=== PATIENT | female | born 1950 | race Caucasian/White ===

== ENCOUNTER 2023-04-03 05:57 | Day surgery (SDC) | payer MEDICARE, OTHER, SELFPAY ==
[2023-03-21 12:33] VITALS: BMI 24.2
[2023-04-03] VITALS (9 sets, daily range): BP systolic 107–132; BP diastolic 65–94; BMI 24.1
[2023-04-03 09:23] LABS: ACT-LR - POC 234 Seconds (116-155)
[2023-04-03 09:45] LABS: ACT-LR - POC 252 Seconds (116-155)
--- NOTE | 2023-04-03 09:59 | ITS.CL.ABL ---
Production Mechanic - Ablation
Ablation
Procedure Report:
ELECTROPHYSIOLOGY ABLATION STUDY
DATE:: April 03, 2023 REFERRING: Dr. Ulises Goodman
INDICATION: Paroxysmal supraventricular tachycardia in the form of atrial fibrillation. History of typical atrial flutter
HISTORY: See H and P. As above
ANTIARRHYTHMIC DRUG: Metoprolol
PRE-PROCEDURE LYNNETTE: No atrial thrombus on intracardiac ultrasound
PRESENTING RHYTHM: Sinus bradycardia
'TIME-OUT': called and confirmed.
SEDATION/ANESTHESIA: provided via the anesthesia department using general anesthesia (LMA).
INTRAVENOUS/ARTERIAL ACCESS:
Right femoral venous - 8Fr
Left femoral venous - 8 Fr, 6 Fr
Venous access sites were occluded with Vascade closure system
Ultrasound guidance for bilateral femoral vein access was utilized by me to obtain access with demonstration of normal anatomy
CHADS-VASC Score:
HAS-Bled Score
PROCEDURE:
1. A decapolar CS catheter was placed within the CS for mapping and pacing. This was also used as the reference catheter for the 3-D map. CTI flutter ablation was performed upfront with persistent bidirectional block and interest was conduction
time of 110 ms. Persistent bidirectional block was brought about at the back of the line towards the IVC and the septal aspect.
2. The intracardiac ultrasound catheter was positioned in the RA to identify the FO for targeting of transseptal puncture, assist in identification of the pulmonary vein ostia, monitoring pre and post ablation pulmonary vein flow velocities,
monitoring for 'bubble' formation during RF application as a sign of thermal injury, and to monitor for pericardial effusion during mapping and ablation procedure. Left atrial size, LV ejection fraction, and pulmonary vein flows were monitored
pre and post ablation procedure. The other valves were inspected and found to be free of significant regurgitation or stenosis.
3. Half of the calculated heparin bolus was administered prior to the first transeptal puncture. Transseptal puncture was performed to diagnose RA and LA pressure so that safetey of LA mapping and ablation could be further assessed, and to access
the left atrium and pulmonary veins for mapping and ablation. This entailed advancing an 8 Fr SL-1 sheath with dilator into the superior vena cava and withdrawing both (monitoring intracardiac ultrasound, fluoroscopy and tip pressure) with the tip
oriented toward the atrial septum. The fossa ovalis was engaged (indicated by sudden displacement of the sheath tip as well as tenting of the fossa seen on intracardiac ultrasound). Left atrial access required a pass with the Brockenbrough needle
extended. Left atrial catheter position was confirmed by pressure monitoring (RA mean pressure 8 mm Hg and LA mean presure 14 mm Hg), LA saturation ( 99 %), as well as fluoroscopy. The sheath was advanced over the dilator and positioned in the
left atrium. This procedure was repeated for the Agilis sheath. The remainder of the calculated heparin bolus was administered and heparin was
infused to maintain ACT at 300 -350 seconds throughout the case.
4. RA pacing was performed via the proximal decapolar poles and LA pacing was performed via the distal decapolr poles.
5. A quadrapolar catheter was first positioned at the His position for His Bundle recording which was tagged via the 3-D Navex sytem, and then passed to the RVA for RV pacing and recording.
6. The 28 mm cryoballoon and 15 mm octapolar G recording catheter were placed in each of the LIPV, LSPV, RSPV and the RIPV.
7. Next, a 3-D map was created using Navex. A 3-D reconstructed CT image was compared to the 3-D Navex map to assist in anatomic interpretation, mapping and ablation. The CT image and the NavX image were fused.
8. 2 distinct form and freezing application given to the left superior pulmonary vein and left inferior pulmonary veins. Risk of pulm vein was given a 3-minute freezing application and 1 distinct 3 minutes and 200 freezing application to the right
inferior pulmonary vein. Entrance and exit block was confirmed in all 4 pulmonary veins and no loss of phrenic nerve capture or cooling of the esophagus was noted. EP study post procedure did not induce any tach arrhythmia with Wenke block at 380
ms AV.
9. Normal sinus node and AV node function noted.
TOTAL FLOURO TIME: 17.2 minutes 52 mg
TOTAL RF DURATION: 8 minutes
REVERSAL OF HEPARIN: 30 mg of protamine, slow IV administration
COMPLICATIONS:
None
Intracardiac US shows no pericardial effusion post ablation.
SUMMARY:
Complex left atrial mapping and ablation.
Isolation of all 4 pulmonary veins as above and CTI flutter ablation with persistent bidirectional block
RECOMMENDATIONS:
1. Admit to monitored bed.
2. Resume anticoagulation
3. Out of bed 2 hours
4. Consider same-day discharge
Copy to: Dr. Goodman
[2023-04-03] MEDS: TYLENOL 650 MG PO (11:00)
[2023-04-03] MEDS: ZOFRAN 4 MG IV (12:44)
--- NOTE | 2023-04-03 14:50 | W.PN.UPDATE ---
Update Note
Progress Note Update
73 yo WF s/p PVI, CTI flutter (same day). She had some mild chest/back discomfort which resolved, no sob, jamey diet, voiding, amb w/o dizziness, mild nausea resolved with zofran, b/l groins c/d/i, soft, EKG SR. She will continue OAC Eliquis dose at
4pm at home. She will continue metoprolol. Activity restrictions reviewed. She will f/u Dr. Goodman in 2 mo. She is for d/c home after 130p.
SUMMARY:�
Complex left atrial mapping and ablation.
Isolation of all 4 pulmonary veins as above and CTI flutter ablation with persistent bidirectional block
RECOMMENDATIONS:
1. Admit to monitored bed.
2. Resume anticoagulation
3.� Out of bed 2 hours
4.� Consider same-day discharge
Copy to: Dr. Goodman
== END 2023-04-03 14:10 | disposition home or self-care (01) ==
LOC: CATH 05:57
PROVIDERS: ATTENDING PHYSICIAN Internal Medicine Cardiovascular Disease; FAMILY PHYSICIAN Physician Assistant Medical
DX: I48.0 Paroxysmal atrial fibrillation (principal); I48.3 Typical atrial flutter; E78.5 Hyperlipidemia, unspecified; I25.10 Atherosclerotic heart disease of native coronary artery without angina pectoris; I45.10 Unspecified right bundle-branch block; I08.3 Combined rheumatic disorders of mitral, aortic and tricuspid valves; R09.82 Postnasal drip; N28.9 Disorder of kidney and ureter, unspecified; Z86.010 Personal history of colon polyps; K57.90 Diverticulosis of intestine, part unspecified, without perforation or abscess without bleeding; M19.90 Unspecified osteoarthritis, unspecified site; Z86.19 Personal history of other infectious and parasitic diseases; Z79.01 Long term (current) use of anticoagulants
CPT/HCPCS: C1894; C1766; C2630; C1892 ×2; C1730; C1733; C1759; 76937; 85347; 93005; 93655; 93656; C1760; Q9967

== ENCOUNTER 2023-04-04 08:11 | Emergency (ER) | payer MEDICARE, OTHER, SELFPAY ==
[2023-04-04 08:15] VITALS: BP 149/83
[2023-04-04 09:25] VITALS: BP 133/96
--- NOTE | 2023-04-04 09:30 | ED.GENMED ---
History of Present Illness
General
Chief Complaint: Skin Problem
Source: patient
Exam Limitations: none
Time Seen by Provider: 04/04/23 08:29
Travel History
Have you had any contact with someone who has COVID-19?: No
Do you have any symptoms of coronavirus? Fever > 100 degrees, chills, cough, shortness of breath, sore throat, loss of taste or smell, muscle aches, or headache?: No
History of Present Illness
History of Present Illness:
73-year-old female who presents for evaluation of her right groin wound. The patient had an ablation yesterday and was told to watch the dressings for saturation. Today when she woke up she noticed the dressings were bloody on the right. She
reports no pain. She states that there is a little bit of discomfort that she expected. She does report she feels a little flushed this morning. No fevers. No abdominal pain. No vomiting.
Past History
Past History
ED Past Medical History: Arrthythmia (Atrial fibrillation, anticoagulated) and Other (colon polyps)
ED Past Surgical History: Orthopedic and Other (A ligament repair of the left knee, wisdom teeth extraction, tubes tied, colonoscopy with polypectomy)
Social History
Tobacco: Non-smoker
Personal:
Living: alone
Employment: Retired
Phy Exam
Physical Exam
Physical Exam:
CONSTITUTIONAL Patient alert and oriented to person, place and time. Well-appearing. Vital signs reviewed.
HEAD atraumatic, normocephalic.
EYES eyelids normal to inspection, Extraocular muscles intact, Conjunctiva normal, Sclera normal.
NECK normal range of motion, Trachea midline, no jugular venous distention.
RESPIRATORY CHEST No respiratory distress noted, Chest expansion equal
ABDOMEN No distention.
BACK normal inspection, no obvious deformities
UPPER EXTREMITY range of motion normal, Motor strength normal, no cyanosis, no edema.
LOWER EXTREMITY range of motion normal, Motor strength normal, no cyanosis, no edema. Right groin with small incision area (less than 1 cm). There is no surrounding ecchymosis or induration. There is no focal tenderness. No redness. No
drainage. There is no active bleeding. Left groin with some surrounding ecchymosis around the small less than 1 cm incision site. No tenderness or bleeding. No redness. No drainage
NEURO Speech normal, No focal motor deficits, Copeland coma scale 15, Memory normal, Cranial Nerves intact to screening exam.
SKIN skin warm, dry, and normal in color.
PSYCHIATRIC patient oriented to person place and time, Normal affect.
Course
Orders/Labs/Results
Orders:
Orders
04/04/23 09:57
Electrocardiogram (*1) Stat
Reason for Study: Other
Other Reason for Exam: chest pain
EKG- Treatment ONCE
Vital Signs
Initial and Last Documented VS:
Initial Vital Signs
Temp Pulse Resp BP Pulse Ox
98.2 F 78 16 149/83 98
04/04/23 08:15 04/04/23 08:15 04/04/23 08:15 04/04/23 08:15 04/04/23 08:15
Last Documented Vital Signs
Temp Pulse Resp BP Pulse Ox
98.2 F 70 16 133/96 98
04/04/23 08:15 04/04/23 09:25 04/04/23 09:25 04/04/23 09:25 04/04/23 09:25
MDM/Problems Addressed
MDM/Problems Addressed:
Postoperative wound evaluation, postoperative bleeding, therapeutic coagulopathy
*Pulse Oximetry
Patient hypoxic: no
*EKG
Interpreted by ED Provider?: Yes
Interpretation: normal
Rate: normal
Rhythm: sinus
Interval: normal interval
QRS Pattern: other (incomplete RBBB)
Ischemia: no ischemia
*Critical Care Note
Total Time (30-74mins, 75-104mins- exclusive of procedures): Not Applicable
Data Reviewed
Source: patient
Prescriptions/Medications Considered But Not Given:
Consider lidocaine with epi but no active bleeding
Patient Management
Discussion with other providers: Sociology Adjunct Instructor (Case discussed with Dr. Oneill)
Escalation/DeEscalation of care consider admission/obs:
Patient observed. No further bleeding at all. No clinical concern for pseudoaneurysm. Case discussed with Dr. Oneill. Outpatient follow-up recommended
ED Attending Note
-
Portions of this chart may have been created with voice recognition software.� Occasional wrong word or��sound alike� substitutions may have occurred due to the inherent limitations of voice recognition software.
Discharge Plan
Departure
Patient Disposition: Home (Routine Discharge)
Date of Disposition: 04/04/23
Time of Disposition: 09:41
Patient with high blood pressure during this ER visit?: Yes
Discharge Problem:
Postoperative wound hemorrhage
Instructions: Wound Care (DC), BLOOD PRESSURE
Prescriptions:
No Action
Eliquis 5 mg Tablet
5 mg PO BID Qty: 30 3RF
metoprolol succinate 25 mg Tablet Extended Release 24 Hr
25 mg PO DAILY Qty: 30 3RF
Referrals:
Jessica Bertrand PA-C [Family Provider] -
Activity Restrictions/Additional Instructions:
Please avoid any irritate underwear for 2 to 3 weeks. Please follow-up with cardiology as planned. Return for swelling of the groin, pain, bleeding, redness, oozing from the wound or any other concerns.
Interventions
Interventions:
*Risk Screen - Suicide Last Done: 04/04/23 08:16
*General Assessment Last Done: 04/04/23 08:45
*Neglect/Abuse Screening Last Done: 04/04/23 09:34
ED- Fall Risk Assessment Last Done: 04/04/23 08:45
*ED COVID-19 Vaccine History Last Done: 04/04/23 08:15
ED-Skin Assessment Last Done: 04/04/23 08:45
[2023-04-04 10:22] VITALS: BP 122/72
== END 2023-04-04 10:24 | disposition home or self-care (01) ==
LOC: EMR 08:11
PROVIDERS: EMERGENCY PHYSICIAN Emergency Medicine; FAMILY PHYSICIAN Physician Assistant Medical
DX: L76.22 Postprocedural hemorrhage of skin and subcutaneous tissue following other procedure (principal); R03.0 Elevated blood-pressure reading, without diagnosis of hypertension
CPT/HCPCS: 99283; 93005

== ENCOUNTER 2023-06-13 14:12 | Emergency (ER) | payer MEDICARE, OTHER, SELFPAY ==
[2023-06-13] VITALS (13 sets, daily range): BP systolic 85–126; BP diastolic 65–93
[2023-06-13] MEDS: LOPRESSOR 5 MG IV (16:18)
[2023-06-13] MEDS: NSS 1000 IV (16:18)
[2023-06-13 16:27] LABS: Hematocrit 41.9 % (37.0-47.0); Mean Corp Hgb Conc. 33.4 g/dL (33.0-37.0); Mean Corpuscular Volume 89.9 fL (81.0-99.0); Mean Platelet Volume 10.1 fL (7.4-10.4); Platelet Count 243 10^3/uL (130-400); Red Blood Cell Count 4.66 10^6/uL (4.20-5.40); Red Cell Dist. Width 13.2 % (11.5-14.5); White Blood Cell Count 8.1 10^3/uL (4.8-10.8)
--- NOTE | 2023-06-13 16:38 | ED.GENMED ---
History of Present Illness
General
Chief Complaint: Heart Rate Problem
Source: patient and records
Exam Limitations: none
Time Seen by Provider: 06/13/23 15:46
Nursing documentation reviewed up to this point in time: agreed with
Travel History
Have you had any contact with someone who has COVID-19?: No
Do you have any symptoms of coronavirus? Fever > 100 degrees, chills, cough, shortness of breath, sore throat, loss of taste or smell, muscle aches, or headache?: No
History of Present Illness
History of Present Illness:
73-year-old female referred from cardiology due to tachycardia she has had fast heart rate since the weekend after doing some activity in the heat she has been compliant with her metoprolol and Eliquis has not missed any doses call cardiology today
referred here for cardioversion no chest pain does feel bit fatigue but no fevers, no nausea or vomiting no abnormal bleeding
Past History
Past History
ED Past Medical History: Arrthythmia (Atrial fibrillation, anticoagulated) and Other (colon polyps)
ED Past Surgical History: Cardiac (pvi), Orthopedic and Other (A ligament repair of the left knee, wisdom teeth extraction, tubes tied, colonoscopy with polypectomy)
Social History
Tobacco: Non-smoker
Alcohol: None
Drug: None
Personal:
Living: alone
Employment: Retired
Review of Systems
Review of Systems
All Other Systems: Not applicable
Constitutional: Reports fatigue (Mild since has been out that heat)
Respiratory: Denies trouble breathing
Cardiac: Denies chest pain, diaphoresis, palpitations or syncope
Musculoskeletal: Reports no symptoms
Skin: Reports no symptoms
Neurological: Reports weakness
Endocrine: Reports no symptoms
Phy Exam
Physical Exam
Physical Exam:
Physical Exam
General: no apparent distress, not acutely ill
Neck: Lips are moist
Heart: Tachycardia
Lungs: no acute respiratory distress. clear bilaterally
Neuro: alert and oriented. no focal neurological deficits
Skin: no rash
Psychiatric: well kept. interactive and cooperative
Extremities: no edema. no calf tenderness.
Course
Orders/Labs/Results
Orders:
Orders
06/13/23 14:15
ECG [Electrocardiogram (*1)] Urgent
Reason for Study: Atrial Flutter
EKG- Treatment ONCE
06/13/23 16:15
Metoprolol [Lopressor] 5 mg IV NOW STA
06/13/23 16:16
0.9% Sodium Chloride 1000 ml [Nss] 1,000 ml IV BOLUS
06/13/23 16:18
Complete Blood Count/No Diff Urgent
Comprehensive Metabolic Panel Urgent
Magnesium Urgent
06/13/23 16:43
ECG [Electrocardiogram (*1)] Urgent
Reason for Study: Tachycardia
EKG- Treatment ONCE
06/13/23 16:52
ASA Classification Routine
Propofol [Diprivan] 100 mg IV NOW STA
06/13/23 17:14
ECG [Electrocardiogram (*1)] Urgent
Reason for Study: Other
Other Reason for Exam: cardioversion
06/13/23 17:15
EKG- Treatment ONCE
Abnormal Lab Results
06/13/23
16:18
BUN 26 H mg/dl
(7-17)
AST 123 H U/L
(14-36)
ALT 85 H U/L
(0-35)
06/13/23 16:18
06/13/23 16:18
Vital Signs
Initial and Last Documented VS:
Initial Vital Signs
Temp Pulse Resp BP Pulse Ox
97.7 F 134 16 125/93 97
06/13/23 14:14 06/13/23 14:14 06/13/23 14:14 06/13/23 14:14 06/13/23 14:14
Last Documented Vital Signs
Temp Pulse Resp BP Pulse Ox
98.6 F 64 18 99/77 99
06/13/23 17:47 06/13/23 17:47 06/13/23 17:47 06/13/23 17:47 06/13/23 17:47
Procedures
Cardioversion
Indication:: Afib
Performed by:: bryn
Synchronized?: Yes
Energy Used: 200 joules
Number of attempts: 1
Successful?: Yes
ASA Risk Score: Class II
Any reaction or bad outcome to prior sedation/anesthesia?: No history of a reaction
Sedation level to be attained: moderate
Chart and allergies reviewed: Yes
Patient reassessed prior to sedation: Yes
Time out completed at (validating right patient & procedure): 15:07
History of difficult intubation: No
Airway free of obstruction: Yes
Patient has a gag reflex: Yes
Patient is able to open mouth: Yes
Patient has no dentures: Yes
Patient has no loose teeth: Yes
Medication administered by Provider during Moderate Sedation: IV Propofol (mg)
Total dose administered: 60
Time drug administered: 15:07
Start Time: 15:07
Stop Time: 15:17
MDM/Problems Addressed
Differential Diagnosis Includes:
A-fib a flutter SVT sinus tach
MDM/Problems Addressed:
A flutter
Chronic conditions affecting care: Arrhythmia
Acute Exacerbation and/or Progression of Chronic Illness: Arrhythmia
*EKG
Interpreted by ED Provider?: Yes
Interpretation: abnormal
Comparison EKG: changes noted
Heart Rate: 134
Rate: tachycardiac
Rhythm: atrial flutter
Ischemia: non-specific ST changes
*Nail Welter Interpretation
Rate: tachycardiac
Interpretation: abnormal
Heart Rate: 136
Rhythm: atrial flutter
*Critical Care Note
Total Time (30-74mins, 75-104mins- exclusive of procedures): 12
Update Note
Update Note:
5:28 PM patient feeling much better she is in sinus rhythm in the 60s did have some transient hypotension responded to fluids after she was sedated she is amnestic to her procedures she is very thankful
ED Attending Note
-
Portions of this chart may have been created with voice recognition software.� Occasional wrong word or��sound alike� substitutions may have occurred due to the inherent limitations of voice recognition software.
Discharge Plan
Departure
Patient Disposition: Home (Routine Discharge)
Date of Disposition: 06/13/23
Time of Disposition: 18:32
Patient with high blood pressure during this ER visit?: No
Condition: Good
Discharge Problem:
Paroxysmal atrial flutter
Instructions: Atrial Fibrillation (DC), MODERATE SEDATION ADULT
Prescriptions:
No Action
Eliquis 5 mg Tablet
5 mg PO BID Qty: 30 3RF
metoprolol succinate 25 mg tablet extended release 24 hr
25 mg PO HS
Referrals:
Jessica Bertrand PA-C [Family Provider] -
Ulises Goodman DO [Active] - Next open appointment
Interventions
Interventions:
*Risk Screen - Suicide Last Done: 06/13/23 14:14
*General Assessment Last Done: 06/13/23 14:14
*Neglect/Abuse Screening Last Done: 06/13/23 14:14
ED- Fall Risk Assessment Last Done: 06/13/23 15:43
*ED COVID-19 Vaccine History Last Done: 06/13/23 14:14
ED- Cardiac Assessment Last Done: 06/13/23 15:43
ED- Pulmonary Assessment Last Done: 06/13/23 15:43
Discharge Date and Time
Print Language: SAMI
[2023-06-13 16:49] LABS: ALT (SGPT) 85 U/L (0-35); AST (SGOT) 123 U/L (14-36); Albumin 4.2 g/dl (3.5-5.0); Alkaline Phosphatase 105 U/L (38-126); Blood Urea Nitrogen 26 mg/dl (7-17); Calcium 9.7 mg/dl (8.4-10.2); Carbon Dioxide 25 mmol/L (22-30); Chloride 105 mmol/L (98-107); Glucose 93 mg/dl (70-99); Magnesium 2.1 mg/dl (1.6-2.3); Potassium 4.7 mmol/L (3.5-5.1); Sodium 137 mmol/L (135-145); Total Bilirubin 0.6 mg/dl (0.2-1.3); eGFR 59.49
== END 2023-06-13 19:20 | disposition home or self-care (01) ==
LOC: EMR 14:12
PROVIDERS: EMERGENCY PHYSICIAN Emergency Medicine; FAMILY PHYSICIAN Physician Assistant Medical
DX: I48.92 Unspecified atrial flutter (principal); Z79.01 Long term (current) use of anticoagulants
CPT/HCPCS: 92960; 99285; 96374; 96361; 99152; 80053; 83735; 85027; 93005

== ENCOUNTER 2023-07-25 15:22 | Emergency (ER) | payer MEDICARE, OTHER, SELFPAY ==
[2023-07-25] VITALS (37 sets, daily range): BP systolic 96–122; BP diastolic 69–94
--- NOTE | 2023-07-25 16:05 | ED.GENMED ---
History of Present Illness
<JESS Tong - Last Filed: 07/25/23 22:15>
General
Chief Complaint: Heart Rate Problem
Source: patient
Exam Limitations: none
Time Seen by Provider: 07/25/23 16:02
Travel History
Have you had any contact with someone who has COVID-19?: No
Do you have any symptoms of coronavirus? Fever > 100 degrees, chills, cough, shortness of breath, sore throat, loss of taste or smell, muscle aches, or headache?: No
History of Present Illness
History of Present Illness:
Patient is a 73-year-old female with history of a flutter on Eliquis and metoprolol has not missed a dose presents to the ER for elevated heart rate. She reports she did an exercise class this morning and [employer] this morning and was
fine but 11:15 AM she felt her heart racing and her heart monitor home told her her heart rate was in the 120s. She did feel a little lightheaded and short breath prior to coming to the ER however is asymptomatic presently. She is on metoprolol
and Eliquis and has not missed a dose of her Eliquis. She does not currently feel palpitations. She is followed by Dr. Goodman. She also reports she has had cardiac ablation March 2023. In addition she has had 2 cardioversions once June 12 here
and once July 03 in [place] .because she has had 2 cardioversions within 3 weeks apart cardiology is planning to do an ablation.
Past History
<JESS Tong - Last Filed: 07/25/23 22:15>
Past History
ED Past Medical History: Arrthythmia (Atrial fibrillation, anticoagulated) and Other (colon polyps)
ED Past Surgical History: Cardiac (pvi), Orthopedic and Other (A ligament repair of the left knee, wisdom teeth extraction, tubes tied, colonoscopy with polypectomy)
Social History
Tobacco: Non-smoker
Alcohol: None
Drug: None
Personal:
Living: alone
Employment: Retired
Review of Systems
<JESS Tong - Last Filed: 07/25/23 22:15>
Review of Systems
Allergies reviewed?: Yes
Constitutional: Reports no symptoms
Respiratory: Reports no symptoms
Cardiac: Reports palpitations; Denies chest pain, diaphoresis or syncope
ABD/GI: Reports no symptoms
: Reports no symptoms
Musculoskeletal: Reports no symptoms
Skin: Reports no symptoms
Neurological: Reports no symptoms
Psychiatric: Reports no symptoms
Phy Exam
<JESS Tong - Last Filed: 07/25/23 22:15>
General Physical Exam
General Presentation: no apparent distress
General age: appears stated age
General Skin: warm and dry
General Habitus: normal
General Mental: alert
General Hydration: appears well hydrated
Cardiovascular Exam
Cardiovascular Exam: irregularly irregular
Pulmonary Exam
Pulmonary Exam: lungs clear and no respiratory distress
Neurological Exam
Neurological Exam: alert and oriented x3
Musculoskeletal Exam
Musculoskeletal Exam: full ROM
Skin Exam
Skin Exam: normal color and warm/dry
Psychiatric Exam
Psychiatric Exam: normal mood/affect
Course
<JESS Tong - Last Filed: 07/25/23 22:15>
Orders/Labs/Results
Orders:
Orders
07/25/23 15:23
Electrocardiogram (*1) Urgent
Reason for Study: Palpitations
EKG- Treatment ONCE
07/25/23 16:15
Complete Blood Count/With Diff Urgent
Comprehensive Metabolic Panel Urgent
TSH Reflex To Free T4 Urgent
07/25/23 16:20
0.9% Sodium Chloride 1000 ml [Nss] 1,000 ml IV BOLUS
07/25/23 17:14
Diltiazem 125 mg/125 ml Nss [Cardizem] 125 mg in 125 ml IV NOW
Initial dose in mg/hr, then titrate:: 5
Titrate to keep:: Heart rate 80-100 bpm
Titrate by mg/hr:: 5 mg/hr
Frequency of titrations (minutes):: 15
Maximum dose in mg/hr:: 15
Diltiazem HCl [Cardizem] 10 mg IV NOW STA
07/25/23 18:38
Propofol [Diprivan] 20 ml .ROUTE .STK-MED
07/25/23 19:16
EKG [Electrocardiogram (*1)] Urgent
Reason for Study: Chest Pain
EKG- Treatment ONCE
07/25/23 19:30
EKG [Electrocardiogram (*1)] Urgent
Reason for Study: Atrial Fibrillation
EKG- Treatment ONCE
Abnormal Lab Results
07/25/23
16:15
BUN 23 H mg/dl
(7-17)
Glucose 118 H mg/dl
(70-99)
07/25/23 16:15
07/25/23 16:15
Vital Signs
Initial and Last Documented VS:
Initial Vital Signs
Temp Pulse Resp BP Pulse Ox
98.1 F 130 20 119/80 98
07/25/23 15:28 07/25/23 15:28 07/25/23 15:28 07/25/23 15:28 07/25/23 15:28
Last Documented Vital Signs
Temp Pulse Resp BP Pulse Ox
97.9 F 62 23 117/77 97
07/25/23 21:22 07/25/23 21:20 07/25/23 21:20 07/25/23 21:20 07/25/23 21:20
<Liam Manuel DO - Last Filed: 07/25/23 18:49>
Orders/Labs/Results
Orders:
Orders
07/25/23 15:23
Electrocardiogram (*1) Urgent
Reason for Study: Palpitations
EKG- Treatment ONCE
07/25/23 16:15
Complete Blood Count/With Diff Urgent
Comprehensive Metabolic Panel Urgent
TSH Reflex To Free T4 Urgent
07/25/23 16:20
0.9% Sodium Chloride 1000 ml [Nss] 1,000 ml IV BOLUS
07/25/23 17:14
Diltiazem 125 mg/125 ml Nss [Cardizem] 125 mg in 125 ml IV NOW
Initial dose in mg/hr, then titrate:: 5
Titrate to keep:: Heart rate 80-100 bpm
Titrate by mg/hr:: 5 mg/hr
Frequency of titrations (minutes):: 15
Maximum dose in mg/hr:: 15
Diltiazem HCl [Cardizem] 10 mg IV NOW STA
07/25/23 18:38
Propofol [Diprivan] 20 ml .ROUTE .STK-MED
07/25/23 19:16
EKG [Electrocardiogram (*1)] Urgent
Reason for Study: Chest Pain
EKG- Treatment ONCE
07/25/23 19:30
EKG [Electrocardiogram (*1)] Urgent
Reason for Study: Atrial Fibrillation
EKG- Treatment ONCE
Abnormal Lab Results
07/25/23
16:15
BUN 23 H mg/dl
(7-17)
Glucose 118 H mg/dl
(70-99)
07/25/23 16:15
07/25/23 16:15
Vital Signs
Initial and Last Documented VS:
Initial Vital Signs
Temp Pulse Resp BP Pulse Ox
98.1 F 130 20 119/80 98
07/25/23 15:28 07/25/23 15:28 07/25/23 15:28 07/25/23 15:28 07/25/23 15:28
Last Documented Vital Signs
Temp Pulse Resp BP Pulse Ox
97.9 F 62 23 117/77 97
07/25/23 21:22 07/25/23 21:20 07/25/23 21:20 07/25/23 21:20 07/25/23 21:20
Procedures
<JESS Tong - Last Filed: 07/25/23 22:15>
Moderate Sedation
ASA Risk Score: Class II
Chart and allergies reviewed: Yes
Consent for anesthesia obtained: Yes
Time out completed (validating right patient & procedure): Yes
Moderate Sedation Start Time(when first medication is given): 19:28
History of difficult intubation: No
Airway free of obstruction: Yes
Patient has a gag reflex: Yes
Patient is able to open mouth: Yes
Patient has no dentures: Yes
Patient has no loose teeth: Yes
Medication administered by Provider during Moderate Sedation: IV Propofol (mg)
Total dose administered: 50
Time drug administered: 19:28
Moderate Sedation Procedure End Time: 19:38
Cardioversion
Indication:: Other (aflutter )
Performed by:: DR Manuel, and myself
Synchronized?: Yes
Energy Used: 150 joules
Number of attempts: 1
Successful?: Yes
Complications: 0
<JESS Tong - Last Filed: 07/25/23 22:15>
MDM/Problems Addressed
Differential Diagnosis Includes:
Not limited to a flutter
MDM/Problems Addressed:
Patient is a 73-year-old female who has a history of a flutter on Eliquis metoprolol has not missed a dose but had palpitations today presented in a flutter here in the ER. Patient was given Cardizem bolus and drip but remained tachycardic. She
presented awake alert no acute distress.
Patient was eval by ED physician decision was made to do moderate sedation and cardioversion. Patient tolerated procedure well converted to normal sinus rhythm heart rate 61. Patient was monitored here remained in normal sinus rhythm with stable
vital signs stable for discharge home with moderate sedation instructions given
<JESS Tong - Last Filed: 07/25/23 22:15>
*Pulse Oximetry
Patient hypoxic: no
*EKG
Interpreted by ED Provider?: Yes
Heart Rate: 124
Rhythm: atrial flutter
Ischemia: no ischemia
<Liam Manuel DO - Last Filed: 07/25/23 18:49>
*Critical Care Note
Total Time (30-74mins, 75-104mins- exclusive of procedures): 45 minutes
ED Attending Note
<JESS Tong - Last Filed: 07/25/23 22:15>
-
Portions of this chart may have been created with voice recognition software.� Occasional wrong word or��sound alike� substitutions may have occurred due to the inherent limitations of voice recognition software.
<Liam Manuel DO - Last Filed: 07/25/23 18:49>
ED Attending Note
Patient seen and examined by attending physician: Yes
I performed the substantive portion of visit, reviewed & personally made and approve the management plan that is documented in note by myself or MILENA.: Yes
ED Attending Note:
73-year-old female with a history of ablation and atrial fibrillation who presents with rapid heartbeat. The patient on my assessment feels well. She has had cardioversion several times in the past. Patient denies chest pain or shortness of
breath. Exam: Awake and alert, heart rate 120 on exam and appears to be a flutter. Assessment and plan: EKG shows a flutter. Proceed with cardioversion and outpatient follow-up with cardiology if successful
Discharge Plan
Departure
Patient Disposition: Home (Routine Discharge)
Date of Disposition: 07/25/23
Time of Disposition: 21:48
Patient with high blood pressure during this ER visit?: No
Condition: Fair
Covid-19: Not Applicable
Discharge Problem:
Paroxysmal atrial flutter, moderate sedation
Instructions: Atrial Flutter (DC), Moderate Sedation in Adults (DC)
Prescriptions:
No Action
Eliquis 5 mg Tablet
5 mg PO BID Qty: 30 3RF
metoprolol succinate 25 mg tablet extended release 24 hr
25 mg PO HS
Referrals:
Wilberto Boone MD [Family Provider] -
Activity Restrictions/Additional Instructions:
Follow-up with your clinic charge nurse as discussed.
Continue to take your medications as previously recommended and return if any worsening of symptoms including palpitations shortness of breath or any further concerns.
Interventions
Interventions:
*Risk Screen - Suicide Last Done: 07/25/23 15:28
*General Assessment Last Done: 07/25/23 15:28
*Neglect/Abuse Screening Last Done: 07/25/23 15:28
ED- Fall Risk Assessment Last Done: 07/25/23 15:42
*ED COVID-19 Vaccine History Last Done: 07/25/23 15:42
ED- Cardiac Assessment Last Done: 07/25/23 15:42
ED- Pulmonary Assessment Last Done: 07/25/23 15:42
Discharge Date and Time
Print Language: FAROESE
[2023-07-25] MEDS: NSS 1000 IV (16:22)
[2023-07-25 16:28] LABS: % Basophils 0.6 % (0-2); % Eosinophils 0.3 % (0-6); % Immature Granulocytes 0.4 % (0-0.5); % Lymphocytes 35.7 % (20.5-51.1); Absolute Lymphocytes 2.6 10^3/uL (1.2-3.4); Absolute Monocytes 0.6 10^3/uL (0.1-0.6); Absolute Neutrophils 3.9 10^3/uL (1.4-6.5); Hematocrit 43.1 % (37.0-47.0); Hemoglobin 14.9 g/dL (12.0-16.0); Mean Corp Hgb Conc. 34.6 g/dL (33.0-37.0); Mean Corpuscular Hgb 30.3 pg (27.0-31.0); Mean Corpuscular Volume 87.6 fL (81.0-99.0); Mean Platelet Volume 10.1 fL (7.4-10.4); Nucleated Red Blood Cells % 0 %; Platelet Count 253 10^3/uL (130-400); Red Blood Cell Count 4.92 10^6/uL (4.20-5.40); Red Cell Dist. Width 12.9 % (11.5-14.5); White Blood Cell Count 7.1 10^3/uL (4.8-10.8)
[2023-07-25 16:41] LABS: ALT (SGPT) 14 U/L (0-35); AST (SGOT) 22 U/L (14-36); Albumin 4.2 g/dl (3.5-5.0); Alkaline Phosphatase 109 U/L (38-126); Blood Urea Nitrogen 23 mg/dl (7-17); Calcium 9.6 mg/dl (8.4-10.2); Carbon Dioxide 22 mmol/L (22-30); Chloride 107 mmol/L (98-107); Glucose 118 mg/dl (70-99); Potassium 4.6 mmol/L (3.5-5.1); Sodium 138 mmol/L (135-145); Total Bilirubin 0.6 mg/dl (0.2-1.3); Total Protein 7.1 g/dl (6.3-8.2); eGFR 59.49
[2023-07-25 17:11] LABS: TSH Reflex To Free T4 2.07 uIU/ml (0.47-4.68)
[2023-07-25] MEDS: CARDIZEM 10 MG IV (17:27)
[2023-07-25] MEDS: CARDIZEM 125 IV (17:27)
--- NOTE | 2023-07-25 19:28 | EDRN ---
1928 50 mg propofol ivp administered by MD Manuel
== END 2023-07-25 22:19 | disposition home or self-care (01) ==
LOC: EMR 15:22
PROVIDERS: Nurse Practitioner; EMERGENCY PHYSICIAN Emergency Medicine; FAMILY PHYSICIAN Family Medicine
DX: R00.2 Palpitations (principal); I48.92 Unspecified atrial flutter; Z79.01 Long term (current) use of anticoagulants; Z87.19 Personal history of other diseases of the digestive system
CPT/HCPCS: 99283; 80053; 84443; 85025; 93005

== ENCOUNTER 2023-08-04 21:48 | Inpatient (IN) | payer MEDICARE, OTHER, SELFPAY ==
[2023-08-04] VITALS (20 sets, daily range): BP systolic 69–135; BP diastolic 24–91; BMI 24.1; BMI 24.2
[2023-08-04] MEDS: NSS 1000 IV ×3 (19:16→23:46)
--- NOTE | 2023-08-04 19:31 | ED.GENMED ---
History of Present Illness
General
Chief Complaint: Cardiac Symptoms
Source: patient, records, physician and previous hospital records
Exam Limitations: clinical condition and altered mental status
Time Seen by Provider: 08/04/23 19:09
Nursing documentation reviewed up to this point in time: agreed with
History of Present Illness
History of Present Illness:
Late entry seen immediately upon presentation
73-year-old female history of A-fib status post ablation sees Dr. Nino Goodman
Numerous cardioversions started on flecainide recently, felt acutely weak and short of breath with fast heart rate just prior to arrival from brought to the ER in triage she was shocky tachycardic dusky with hypotension started on oxygen and IV
fluids EKG showed a fast wide rhythm decision was made to do immediate DC cardioversion
Patient denies chest pain states he does feel weak and somewhat short of breath, denied any fever states she was in the heat for a long time today
Past History
Past History
ED Past Medical History: Arrthythmia (Atrial fibrillation, anticoagulated) and Other (colon polyps)
ED Past Surgical History: Cardiac (pvi), Orthopedic and Other (A ligament repair of the left knee, wisdom teeth extraction, tubes tied, colonoscopy with polypectomy)
Social History
Tobacco: Non-smoker
Alcohol: None
Drug: None
Personal:
Living: alone
Employment: Retired
Review of Systems
Review of Systems
Unable to obtain full review of systems at this time due to: due to acuity
All Other Systems: Not applicable
Constitutional: Reports fatigue
Respiratory: Reports trouble breathing
Cardiac: Reports palpitations and syncope; Denies chest pain or diaphoresis
ABD/GI: Reports no symptoms
: Reports no symptoms
Phy Exam
Physical Exam
Physical Exam:
Physical Exam
General: Hypotensive tachycardic female moderate distress
Neck: No tongue bite
Heart: Tachycardic
Lungs: Shallow respirations
Abdomen: Nontender
Neuro: Globally weak answer simple command
Skin: no rash
Psychiatric: cooperative
Extremities: Diminished peripheral pulses
Course
Orders/Labs/Results
Orders:
Orders
08/04/23 19:08
Electrocardiogram (*1) Urgent
Reason for Study: Other
Other Reason for Exam: Respiratory Distress
Cardiac Monitoring- Treatment ONCE
EKG- Treatment ONCE
IV Insert/Care/Rem.- Treatment PRN
O2 Therapy [RESP] Urgent
Titrate/Wean O2 to maintain O2 sat greater than (%): 93
Special Instructions: TO MAINTAIN CONTINUOUS O2 SATS >/= 93%
Pulse Ox/cont/shift [RESP] Urgent
Quantity: 1
Special Instructions: continuous pulse ox
08/04/23 19:11
Propofol [Diprivan] 20 ml .ROUTE .STK-MED
08/04/23 19:17
Complete Blood Count/With Diff Urgent
Comprehensive Metabolic Panel Urgent
NT-proBNP Urgent
Troponin I Urgent
08/04/23 19:18
EKG [Electrocardiogram (*1)] Urgent
Reason for Study: Tachycardia
EKG- Treatment ONCE
08/04/23 19:26
0.9% Sodium Chloride 1000 ml [Nss] 1,000 ml IV BOLUS
08/04/23 19:29
0.9% Sodium Chloride 1000 ml [Nss] 1,000 ml IV BOLUS
CR Chest Portable - 1 View Urgent
Comment:
Reason For Exam: sob
Reason Study Needs to be Portable: Unable to Transport
08/04/23 20:07
Add On- LAB Urgent
Tests Added?: magnesium
CARDIOLOGY CONSULT Urgent
Consulting Provider: Maricarmen Cam
Was physician already notified: Yes
Abnormal Lab Results
08/04/23
19:17
Potassium 5.3 H mmol/L
(3.5-5.1)
Carbon Dioxide 21 L mmol/L
(22-30)
BUN 32 H mg/dl
(7-17)
Creatinine 1.4 H mg/dL
(0.6-1.0)
Glucose 127 H mg/dl
(70-99)
08/04/23 19:17
08/04/23 19:17
Vital Signs
Initial and Last Documented VS:
Initial Vital Signs
Temp Pulse Resp Pulse Ox
97.8 F 180 24 100
08/04/23 19:03 08/04/23 19:03 08/04/23 19:03 08/04/23 19:03
Last Documented Vital Signs
Temp Pulse Resp BP Pulse Ox
97.8 F 63 13 95/76 100
08/04/23 19:25 08/04/23 19:50 08/04/23 19:50 08/04/23 19:50 08/04/23 19:50
Procedures
Cardioversion
Indication:: Other (Wide-complex)
Performed by:: Bret
Synchronized?: Yes
Energy Used: 200 joules
Number of attempts: 1
Successful?: Yes
ASA Risk Score: Class II
Any reaction or bad outcome to prior sedation/anesthesia?: No history of a reaction
Sedation level to be attained: moderate
Chart and allergies reviewed: No
Patient reassessed prior to sedation: Yes
Time out completed at (validating right patient & procedure): 19:15
History of difficult intubation: No
Airway free of obstruction: Yes
Patient has a gag reflex: Yes
Patient is able to open mouth: Yes
Patient has no dentures: Yes
Patient has no loose teeth: Yes
Medication administered by Provider during Moderate Sedation: IV Propofol (mg)
Total dose administered: 100
Time drug administered: 19:15
Start Time: 19:15
Stop Time: 19:25
MDM/Problems Addressed
Differential Diagnosis Includes:
SVT with aberrancy, AF, atrial tach, ventricular tach
Nonetheless she is unstable we will proceed with cardioversion
MDM/Problems Addressed:
Tachyarrhythmia
Chronic conditions affecting care: Arrhythmia
Acute Exacerbation and/or Progression of Chronic Illness: Arrhythmia
*Radiology
Radiology exam reviewed: preliminary read by ED provider
*Pulse Oximetry
Patient hypoxic: no
*EKG
Interpreted by ED Provider?: Yes
Interpretation: abnormal
Comparison EKG: changes noted
Heart Rate: 180
Rate: tachycardiac
Rhythm: atrial flutter
[place]: indeterminate
Ischemia: non-specific ST changes
*Director Of Group Counseling Program Interpretation
Rate: tachycardiac
Interpretation: abnormal
Heart Rate: 180
Rhythm: atrial flutter
*Critical Care Note
Total Time (30-74mins, 75-104mins- exclusive of procedures): 30
Data Reviewed
Review of Other/Old Records Reveals: Labs and Records
Source: patient and records
Update Note
Update Note:
Update--- patient seen immediately upon presentation unstable tachyarrhythmia treated with urgent DC cardioversion patient tolerated well, old records reviewed, reviewed with cardiology, patient will be admitted to medical service, consideration for
holding flecainide, ischemic evaluation if not previously done, starting amiodarone for 24 hours with plan for repeat AF ablation
ED Attending Note
-
Portions of this chart may have been created with voice recognition software.� Occasional wrong word or��sound alike� substitutions may have occurred due to the inherent limitations of voice recognition software.
Discharge Plan
Departure
Patient Disposition: Admit
Date of Disposition: 08/04/23
Time of Disposition: 20:11
Admit to: IVU
Presentation/result/management discussed w/ accepting MD/DO: Hospitalist
Patient with high blood pressure during this ER visit?: No
Condition: Serious
Covid-19: Not Applicable
Discharge Problem:
Syncope and collapse, Atrial tachycardia
Prescriptions:
No Action
Eliquis 5 mg Tablet
5 mg PO BID Qty: 30 3RF
metoprolol succinate 25 mg tablet extended release 24 hr
25 mg PO HS
Referrals:
UNKNOWN - PT NOT,INTERVIEWE [Family Provider] -
Interventions
Interventions:
*General Assessment Last Done: 08/04/23 19:03
*Neglect/Abuse Screening Last Done: 08/04/23 19:03
ED- Fall Risk Assessment Last Done: 08/04/23 19:03
*ED COVID-19 Vaccine History Last Done: 08/04/23 19:03
ED- Cardiac Assessment Last Done: 08/04/23 19:18
ED- Neurological Assessment Last Done: 08/04/23 19:50
ED- Pulmonary Assessment Last Done: 08/04/23 19:50
Discharge Date and Time
Print Language: LAO
[2023-08-04 19:49] LABS: % Basophils 0.6 % (0-2); % Eosinophils 0.1 % (0-6); % Immature Granulocytes 0.4 % (0-0.5); % Lymphocytes 37.9 % (20.5-51.1); % Monocytes 7.6 % (1.7-9.3); % Neutrophils 53.4 % (42.2-75.2); Absolute Basophils 0.1 10^3/uL (0-0.2); Absolute Lymphocytes 3.1 10^3/uL (1.2-3.4); Absolute Monocytes 0.6 10^3/uL (0.1-0.6); Absolute Neutrophils 4.3 10^3/uL (1.4-6.5); Hematocrit 42.2 % (37.0-47.0); Hemoglobin 14.7 g/dL (12.0-16.0); Mean Corp Hgb Conc. 34.8 g/dL (33.0-37.0); Mean Corpuscular Hgb 30.1 pg (27.0-31.0); Mean Corpuscular Volume 86.5 fL (81.0-99.0); Mean Platelet Volume 10.3 fL (7.4-10.4); Nucleated Red Blood Cells % 0 %; Platelet Count 251 10^3/uL (130-400); Red Blood Cell Count 4.88 10^6/uL (4.20-5.40); Red Cell Dist. Width 12.9 % (11.5-14.5); White Blood Cell Count 8.1 10^3/uL (4.8-10.8)
[2023-08-04 20:03] LABS: ALT (SGPT) 14 U/L (0-35); AST (SGOT) 21 U/L (14-36); Albumin 4.4 g/dl (3.5-5.0); Alkaline Phosphatase 109 U/L (38-126); Blood Urea Nitrogen 32 mg/dl (7-17); Calcium 10.1 mg/dl (8.4-10.2); Carbon Dioxide 21 mmol/L (22-30); Chloride 103 mmol/L (98-107); Glucose 127 mg/dl (70-99); Potassium 5.3 mmol/L (3.5-5.1); Sodium 135 mmol/L (135-145); Total Bilirubin 0.7 mg/dl (0.2-1.3); eGFR 39.73
--- NOTE | 2023-08-04 20:04 | CON.CAR ---
Consultation
Consultation Request
Date/Time Consultation Requested: 08/04/23
Date/Time Consultation Performed: 08/04/23
Requesting Provider: Dr. Quiles
Performing Provider: Dr. Cam
Reason for Consultation: unstable rapid atrial flutter
Medical History
-
Chief Complaint: Symptomatic rapid atrial flutter with hypotension
History of Present Illness:
I had the pleasure to meet Rachel Martinez in the ED after she presented lightheaded with rapid heart rate found to be hypotensive and rapid atrial flutter and underwent urgent cardioversion with 200J x1 to sinus rhythm. Rachel is a 73-year-old
female who is followed by my colleagues, Dr. Goodman and Dr. Oneill. She has a history of symptomatic typical atrial flutter status post ablation April 03, [address] Oneill. More recently she has had repeat cardioversions for recurrent
symptomatic atrial flutter in [place] in June and more recently on August 23 in [facility] ED. She was started on flecainide 50 mg twice daily on 07/27/23 (last dose this am) with plans for EP follow-up with Dr. Oneill to discuss redo
ablation in early August. She has had no recent travel or URI illnesses. She has had no interruption of anticoagulation. She reports this morning noting that her heart rates were in the 100s but otherwise felt fine. She states that she was inside
most of the day and stayed well-hydrated. She was walking up and down the stairs carrying some towels as well as getting ready to make dinner when she suddenly felt very lightheaded and short of breath. She was weak stating that her legs felt like
Jell-O and she needed to lie down. Her heart was racing. Her neighbor brought her to [facility] further evaluation. She denies chest pain or syncope.. Initial blood pressure 69/41mmHg with heart rates 180 to 190 bpm which improved to
[id number] over 70s with a pulse of 60s to 70s following cardioversion and fluid resuscitation. ER records from this hospitalization as well as on July 24 reviewed. Reviewed [facility] and office records from prior care visits.
.
She also has a history of chest pain in the setting of rapid atrial flutter with mild troponin elevation [CTNI 0.262] in April 2022 who underwent a cardiac catheterization May 03, 2022 which demonstrated her to have a Left dominant circulation
with minor luminal irregularities of the LAD with slow flow concerning for possible microvascular disease or spasm. There is a 20% ostial left circumflex stenosis but otherwise patent with minimal luminal irregularities. Right coronary artery is
nondominant with minimal luminal irregularities. She also has a history of dyslipidemia with suboptimal lipid profile who has declined pharmacologic therapy.
PMH/PSH: Symptomatic recurrent typical atrial flutter with history of cardioversions and flutter ablation with Dr. Oneill April 03, 2023, chest pain with abnormal EKG and mildly elevated troponins April 2022 status post cardiac catheterization
with nonobstructive coronary artery disease with slow flow concerning for possible coronary vasospasm. Chronic anticoagulation for stroke risk reduction. Dyslipidemia. Left hip arthroplasty for osteoarthritis 02/16/2015. Left inguinal hernia
repair with mesh 01/26/2016. Bilateral tubal ligation. Left knee ligament repair.
Past Medical History
Past Medical History: Other (in HPI)
Past Surgical History: Other (In HPI)
Social History
Tobacco: Non-Smoker
Alcohol: None
Drug: None
Personal:
Living: Alone
Family History
Family History: CAD and Other (IBD, depression)
Allergies / Home Medications
Allergy/AdvReac Type Severity Reaction Status Date / Time
doxycycline hyclate Allergy Hives Verified 07/25/23 15:31
[From Vibramycin]
�Medication �Instructions �Recorded �Confirmed �Type
apixaban 5 mg tablet (Eliquis) 5 mg PO BID #30 tabs 05/04/22 07/25/23 Rx
metoprolol succinate 25 mg 25 mg PO HS 06/13/23 07/25/23 History
tablet,extended release 24 hr
Flecainide 50mg 50mg BID 07/26/23
Review of Systems
-
History Source: Patient, Physician and Coordinating Provider
All other systems: Negative unless noted
Constitutional: Fatigue
Respiratory: Trouble Breathing
Cardiac: Palpitations
Abdomen/GI: No Symptoms
: No Symptoms
Musculoskeletal: No Symptoms
Neurological: Dizzy and Weakness
Hematologic/Lymphatic: No Symptoms
Physical Exam
Vital Signs
Temp Pulse Resp BP Pulse Ox
97.8 F 63 13 95/76 100
08/04/23 19:16 08/04/23 19:50 08/04/23 19:50 08/04/23 19:50 08/04/23 19:50
Lab Results
08/04/23 19:17
08/04/23 19:17
Physical Exam
General: Well Developed, Well Nourished and Other (Sleepy following propofol for cardioversion)
HEENT: Normocephalic, Anicteric and Moist Mucous Membranes
Respiratory: Clear
Cardiac: S1/S2 and Regular Rhythm; Negative Murmur, Rub, Peripheral Edema or JVD
GI: Soft, Non Tender, Non Distended and Normal Bowel Sounds
Musculoskeletal: Negative No Edema
Neuro: AO x 3 and Nonfocal/Grossly Intact
Psych: Calm
Impression / Plan
-
PCP: Dr. Hunter
Cardiology: Dr. Goodman
Clothes Presser: Dr. Oneill
Impression:
Symptomatic, unstable rapid typical atrial flutter
Urgent DC cardioversion with 200 J x 1 in the ED
History of PVI and CTI flutter ablation with Dr. Oneill April 03, 2023
Failed flecainide antiarrhythmic therapy which was started July 26, 2023 now discontinued this admission
Chronic anticoagulation for stroke risk reduction.
Dyslipidemia; has declined pharmacologic therapy
Prediabetes
Osteoarthritis left hip arthroplasty for osteoarthritis 02/16/2015.
Left inguinal hernia repair with mesh 01/26/2016.
Bilateral tubal ligation.
Left knee ligament repair.
-Left heart catheterization with Dr. Duenas May 03, 2022: Left dominant nonobstructive coronary artery disease with slow flow concerning for microvascular disease or vasospasm
-2D echocardiogram May 03, 2022: Normal LV size and systolic function with mild concentric left ventricular hypertrophy. EF estimated 60 to 65%. Normal RV size and systolic function. Mild mitral regurgitation. Mild tricuspid regurgitation.
Trileaflet mildly sclerotic aortic valve with mild aortic regurgitation. Estimated pulmonary artery pressures 25 mmHg.
-CT chest preablation March 21, 2023: Conventional pulmonary venous anatomy. Left atrium 3.8 cm. Left atrial appendage free of thrombus. No significant coronary artery calcifications noted. Heart was normal in size. Minimal calcification of
the aortic valve. No significant atherosclerotic disease of the thoracic aorta. Mild fusiform aneurysmal dilatation of the ascending thoracic aorta, 4.2 cm. No pulmonary embolism. Unremarkable thyroid. No significant pleural or pericardial
effusion. No pulmonary nodules or areas of airspace disease.
Plan:
Unstable rapid typical atrial flutter status post urgent ED cardioversion
-Hemodynamics have started to improve with mandaen of sinus rhythm and fluid resuscitation
-Admit to IVU for continuous telemetry
-Monitor blood pressure/heart rate trends and continue metoprolol succinate with hold parameters
-Discontinue flecainide and allow for washout (last dose am 08/03)
-Following flecainide washout will start amiodarone 200 mg twice daily
-Continue uninterrupted Eliquis anticoagulation
-TSH July 25, 2023 within normal limits
-Will discuss with EP on Sunday timing of redo ablation
Markedly abnormal EKG in rapid atrial flutter concerning for ischemia
-Cardiac catheterization April 2022 reviewed with no significant coronary disease but possibility of slow flow in LAD
-No reported chest pain and initial cardiac troponin undetectable.
-Repeat EKG in sinus rhythm with improved ST-T wave abnormalities
-would hold off repeating cardiac troponins which may be elevated following cardioversion
Acute renal insufficiency in the setting of hypotension and rapid atrial flutter
-Creatinine 1.4 on admission, baseline normal
-Hyperkalemia with potassium on admission 5.3.
-Magnesium normal 2.1
-Repeat basic metabolic profile
Elevated proBNP with no clinical symptoms for heart failure
-Chest x-ray is clear
-Will repeat 2D echocardiogram on Sunday, sooner if needed
-Hold off on diuresis at this time
Prediabetes with hemoglobin A1c 6.1% April 2022
-Will repeat hemoglobin A1c
-Goal normoglycemia
History of dyslipidemia previously has declined lipid-lowering therapy.
-Last profile in April 2022: LDL 114, triglycerides 43, HDL 75.
-Will repeat fasting lipid profile
Data Reviewed
-
EKG: Report Reviewed by me
Radiology: Report Reviewed by me
CT Scan: Report Reviewed by me
Labs: Labs Reviewed by me
Old Records: Reviewed
[2023-08-04 20:17] LABS: NT-proBNP 5620 pg/ml; Troponin I < 0.012 ng/ml
[2023-08-04 20:24] LABS: Magnesium 2.1 mg/dl (1.6-2.3)
--- NOTE | 2023-08-04 21:24 | HPS.HSE ---
Family Physician
-
Family Physician: INTERVIEWE UNKNOWN - PT NOT
Chief Complaint
-
Unstable tachycardia
History of Present Illness
73-year-old woman with a history of A-fib, status post ablation, who has had Numerous past cardioversions was started on flecainide recently. She felt acutely weak today and shortness of breath with fast heart rate. In the ED she was shocky,
tachycardic, dusky, with hypotension, and was started on oxygen and IV fluids. The EKG showed a fast wide rhythm decision was made to do immediate DC cardioversion. Patient denied chest pain, and stated she felt weak and somewhat short of breath.
She denied any fever and stated that she was in the heat for a long time today. At the time of my interview (post cardioversion), she was comfortable, in sinus, and had no active complaints.
Medical History
Past Medical History
Past Medical History: Reports Other
Additional Past Medical History:
Paroxysmal Atrial fibrillation, anticoagulated
colon polyps
Cardiac surgery (pvi),
Orthopedic surgery
ligament repair of the left knee,
wisdom teeth extraction,
tubes tied,
colonoscopy with polypectomy
Typical atrial flutter, Paroxysmal,
Mixed hyperlipidemia
thrombophilia
Past Surgical History: Reports Other
Additional Past Surgical History:
See above
Social History
Tobacco: Non-smoker
Alcohol: Occasional
Drug: None
Family History
Family History: Not pertinent
Allergies / Home Medications
Allergies reflects when Allergies were last updated in [facility].
Home Medications with original date entered in [facility]
Allergy/Medication List:
Allergies
Allergy/AdvReac Type Severity Reaction Status Date / Time
doxycycline hyclate Allergy Hives Verified 07/25/23 15:31
[From Vibramycin]
Home Medications
apixaban 5 mg tablet (Eliquis) 5 mg PO BID #30 tabs 05/04/22
metoprolol succinate 25 mg tablet,extended release 24 hr 25 mg PO HS 06/13/23
Review of Systems
-
History Source: Patient
A 12 point ROS was completed and negative except as noted: Yes
Physical Exam
Vital Signs
Vital Signs
Temp Pulse Resp BP Pulse Ox
97.8 F 75 21 118/88 96
08/04/23 19:47 08/04/23 21:00 08/04/23 21:00 08/04/23 21:00 08/04/23 21:00
Physical Exam
General: Well Developed, Well Nourished, No Apparent Distress, Comfortable and Conversant
HEENT: NormoCephalic, Moist mucous membranes, Nose Appears Normal and Ears Appear Normal
Respiratory: Clear
Cardiac: S1/S2 and Regular Rhythm
GI: Soft, Non Tender and Non Distended
Musculoskeletal: No Clubbing, No Cyanosis and No Edema
Skin: Warm and Dry; No Rash or Jaundice
Neuro: Awake, Alert, Oriented and AO x 3
Psych: Calm
Laboratory Results
-
08/04/23 19:17
08/04/23 19:17
Laboratory Results
Total Bilirubin 0.7 mg/dl (0.2-1.3) 08/04/23 19:17
AST 21 U/L (14-36) 08/04/23 19:17
ALT 14 U/L (0-35) 08/04/23 19:17
Alkaline Phosphatase 109 U/L (38-126) 08/04/23 19:17
Troponin I < 0.012 ng/ml 08/04/23 19:17
Data Reviewed
-
Lab Data: Labs Reviewed by me
Impression/Plan
-
IMPRESSION:
73 woman who had unstable tachycardia. This resolved into sinus after cardioversion. Comfortable now.
PLAN:
1. Unstable tachycardia - doing well post cardioversion.
Monitor on telemetry overnight
Further plans per cardiology, likely ablation soon
2. Acute kidney injury, baseline BUN/Creat 23/1.0, now 32/1.4.
IV saline overnight
Recheck in am
Full code
Eliquis for DVTp
[2023-08-04] MEDS: ELIQUIS 5 MG PO (21:50)
[2023-08-04] MEDS: TOPROL XL 25 MG PO (23:47)
[2023-08-04 23:57] LABS: Troponin I 0.014 ng/ml
[2023-08-05] VITALS (9 sets, daily range): BP systolic 100–134; BP diastolic 68–98; BMI 24.2; BMI 23.9
--- NOTE | 2023-08-05 | PTCARENOTE ---
Transferred from [facility] via w/c. Pt alert and oriented. Assisted into bed and made comfortable. Placed on tele monitor-NSR with PACs. Assessment as charted. No complaints at this time.
[2023-08-05] MEDS: ELIQUIS PO (00:07)
[2023-08-05 03:21] LABS: Troponin I 0.023 ng/ml
[2023-08-05 05:36] LABS: Hemoglobin 12.6 g/dL (12.0-16.0); Mean Corp Hgb Conc. 33.2 g/dL (33.0-37.0); Mean Corpuscular Hgb 29.9 pg (27.0-31.0); Mean Corpuscular Volume 90.3 fL (81.0-99.0); Mean Platelet Volume 10.1 fL (7.4-10.4); Platelet Count 182 10^3/uL (130-400); Red Blood Cell Count 4.21 10^6/uL (4.20-5.40); Red Cell Dist. Width 12.9 % (11.5-14.5); White Blood Cell Count 5.3 10^3/uL (4.8-10.8)
[2023-08-05 05:47] LABS: Blood Urea Nitrogen 22 mg/dl (7-17); Calcium 9.1 mg/dl (8.4-10.2); Carbon Dioxide 22 mmol/L (22-30); Chloride 110 mmol/L (98-107); Estimated Creatinine Clearance 52 ml/min; Glucose 90 mg/dl (70-99); HDL Cholesterol 49 mg/dl; LDL Cholesterol, Calculated 97 mg/dl; Potassium 4.5 mmol/L (3.5-5.1); Sodium 139 mmol/L (135-145); Total Cholesterol 166 mg/dl (50-199); Triglyceride 101 mg/dl (10-149); Very Low Density Lipoprotein 20 mg/dl (0-30); eGFR > 60.00
[2023-08-05 05:52] LABS: Troponin I 0.019 ng/ml
[2023-08-05] MEDS: ELIQUIS 5 MG PO ×2 (08:30→19:17)
[2023-08-05 09:19] LABS: Glycohemoglobin (HgbA1c) 5.7 % (4.0-5.6)
--- NOTE | 2023-08-05 12:47 | W.PN.CARDCBS ---
Today's Communication / Plan
-
2D echocardiogram Sunday
Flecainide washout with plan to initiate amiodarone
Continue uninterrupted anticoagulation
Expedited EP follow-up and redo ablation planned
Impression / Plan
-
PCP: Dr. Hunter
Cardiology: Dr. Goodman
Tube Splicer: Dr. Oneill
Impression:
Symptomatic, unstable rapid typical atrial flutter
Urgent DC cardioversion with 200 J x 1 in the ED
History of PVI and CTI flutter ablation with Dr. Oneill April 03, 2023
Failed flecainide antiarrhythmic therapy which was started July 26, 2023 now discontinued this admission
Chronic anticoagulation for stroke risk reduction.
Dyslipidemia; has declined pharmacologic therapy
Prediabetes
Osteoarthritis left hip arthroplasty for osteoarthritis 02/16/2015.
Left inguinal hernia repair with mesh 01/26/2016.
Bilateral tubal ligation.
Left knee ligament repair.
-Left heart catheterization with Dr. Duenas May 03, 2022: Left dominant nonobstructive coronary artery disease with slow flow concerning for microvascular disease or vasospasm
-2D echocardiogram May 03, 2022: Normal LV size and systolic function with mild concentric left ventricular hypertrophy. EF estimated 60 to 65%. Normal RV size and systolic function. Mild mitral regurgitation. Mild tricuspid regurgitation.
Trileaflet mildly sclerotic aortic valve with mild aortic regurgitation. Estimated pulmonary artery pressures 25 mmHg.
-CT chest preablation March 21, 2023: Conventional pulmonary venous anatomy. Left atrium 3.8 cm. Left atrial appendage free of thrombus. No significant coronary artery calcifications noted. Heart was normal in size. Minimal calcification of
the aortic valve. No significant atherosclerotic disease of the thoracic aorta. Mild fusiform aneurysmal dilatation of the ascending thoracic aorta, 4.2 cm. No pulmonary embolism. Unremarkable thyroid. No significant pleural or pericardial
effusion. No pulmonary nodules or areas of airspace disease.
Plan:
Unstable rapid typical atrial flutter status post urgent ED cardioversion 08/04/2023
-Hemodynamics improved with latter-day of sinus rhythm and fluid resuscitation
-Discontinue flecainide and allow for washout (last dose am 08/03)
-Following flecainide washout will start amiodarone 200 mg twice daily, anticipate starting tomorrow 08/06/2023
-Sinus bradycardia with heart rates in the high 40s low 50s. Will reduce metoprolol succinate. May need to discontinue with initiation of amiodarone.
-Continue uninterrupted Eliquis anticoagulation
-TSH July 25, 2023 within normal limits
-Will discuss with EP on Sunday timing of redo ablation: Patient has an appointment with Dr. Oneill on August [address] Oneill anticipates ablation possibly August 19.
Markedly abnormal EKG in rapid atrial flutter concerning for ischemia
-Cardiac catheterization April 2022 reviewed with no significant coronary disease but possibility of slow flow in LAD
-No reported chest pain and initial cardiac troponin undetectable.
-Repeat EKG in sinus rhythm with improved ST-T wave abnormalities
-would hold off repeating cardiac troponins which may be elevated following cardioversion
Acute renal insufficiency in the setting of hypotension and rapid atrial flutter
-Creatinine 1.4 on admission now back to baseline, 0.9.
-Hyperkalemia with potassium on admission 5.3, now improved, potassium 4.5
-Magnesium normal 2.1
Elevated proBNP with no clinical symptoms for heart failure
-Chest x-ray is clear
-Will repeat 2D echocardiogram on Sunday, sooner if needed
-Hold off on diuresis at this time
Prediabetes with hemoglobin A1c 6.1% April 2022
-Repeat hemoglobin A1c is improved, 5.7%
-Goal normoglycemia
History of dyslipidemia previously has declined lipid-lowering therapy.
-Last profile in April 2022: LDL 114, triglycerides 43, HDL 75.
-Repeat lipid profile this morning: Total cholesterol 166, LDL 97, triglycerides 101, HDL 49.
-Continue therapeutic lifestyle changes
Reviewed with hospitalist
Plan discussed with patient and her sister at bedside
Per patient's preference we will keep overnight and monitor heart rates prior to starting amiodarone
Anticipate discharge home 08/06/2023 following echocardiogram and initiation of amiodarone
Progress Note - Brim Curler
Subjective
Date of Service: August 05, 2023
Seen and examined ambulating around room overall feeling well without dizziness/lightheadedness, chest pain, shortness of breath or palpitations
Objective
Labs:
08/05/23 05:05
08/05/23 05:05
Labs
Hgb 12.6 g/dL (12.0-16.0) 08/05/23 05:05
Hct 38.0 % (37.0-47.0) 08/05/23 05:05
Plt Count 182 10^3/uL (130-400) D 08/05/23 05:05
Sodium 139 mmol/L (135-145) 08/05/23 05:05
Potassium 4.5 mmol/L (3.5-5.1) 08/05/23 05:05
BUN 22 mg/dl (7-17) H 08/05/23 05:05
Creatinine 0.9 mg/dL (0.6-1.0) 08/05/23 05:05
Glucose 90 mg/dl (70-99) 08/05/23 05:05
Troponins
08/04/23 08/04/23 08/05/23
19:17 23:23 02:38
Troponin I < 0.012 0.014 0.023 D
08/05/23
05:05
Troponin I 0.019
Vital Signs and I&O:
Vital Signs
Temp Pulse Resp BP Pulse Ox
98.1 F 51 20 134/78 98
08/05/23 11:08 08/05/23 12:00 08/05/23 11:08 08/05/23 11:11 08/05/23 11:08
Vital Signs
Temp Pulse Resp BP Pulse Ox
98.1 F 51 20 134/78 98
08/05/23 11:08 08/05/23 12:00 08/05/23 11:08 08/05/23 11:11 08/05/23 11:08
Intake & Output
08/03/23 08/04/23 08/05/23 08/06/23
06:59 06:59 06:59 06:59
Intake Total 650 / 650
Balance 650 / 650
Physical Exam
Physical Exam
GEN: No distress, awake, alert, oriented x3
HEENT: supple, anicteric, mmm
LUNGS: CTA b/l, no wheezes/rales
CV: Reg, S1/S2, no murmur
ABD: soft, BS+, NT/ND
EXT: No edema
NEURO: Gross non-focal
[2023-08-05] MEDS: NSS IV (12:57)
--- NOTE | 2023-08-05 13:37 | W.PN.HOSP.TC ---
Today's Communication/Plan
-
monitor vitals
see plan
cw eliquis
plan for amio initiation after flecainide washout
ablation per EP
Assessment / Plan
Assessment / Plan
General: Well Developed, Well Nourished, No Apparent Distress, Comfortable and Conversant
HEENT: NormoCephalic, Moist mucous membranes, Nose Appears Normal and Ears Appear Normal
Respiratory: Clear
Cardiac: S1/S2 and Regular Rhythm
GI: Soft, Non Tender and Non Distended
Musculoskeletal: No Clubbing, No Cyanosis and No Edema
Skin: Warm and Dry; No Rash or Jaundice
Neuro: Awake, Alert, Oriented and AO x 3
Psych: Calm
Unstable rapid atrial flutter
Status post urgent cardioversion on admission, now remains in normal sinus rhythm
History of ablation in March,
Failed flecainide which is now discontinued per cardiology. Plan for amiodarone initiation after flecainide washout
Cardiology will also discussed with EP tomorrow for possible ablation.
Echo tomorrow
Currently on metoprolol
Elevated proBNP, no signs of CHF
CXR without pulmonary edema
Echo tomorrow
Hold off on diuresis at this time
Prediabetes
Monitor
Acute renal insufficiency secondary to possible hypotension
Improving
Continue to monitor
DVT prophylax
Eliquis
Full Code
Anticipated Discharge: Within 24 hours
Subjective/Interval History
-
Date of Service: August 05, 2023
denies chest pain
Objective Data
-
Labs:
Laboratory Results
08/05/23
05:05
WBC 5.3
Hgb 12.6
Hct 38.0
Plt Count 182 D
Sodium 139
Potassium 4.5
Chloride 110 H
Carbon Dioxide 22
BUN 22 H
Creatinine 0.9
Glucose 90
Calcium 9.1
Vital Signs:
Vital Signs
Temp Pulse Resp BP Pulse Ox
98.1 F 51 20 134/78 98
08/05/23 11:08 08/05/23 12:00 08/05/23 11:08 08/05/23 11:11 08/05/23 11:08
I&O
08/04/23 08/05/23 08/06/23
06:59 06:59 06:59
Intake Total 650 / 650
Balance 650 / 650
--- NOTE | 2023-08-05 14:09 | PTCARENOTE ---
Pt AOx3, no complaints of pain or discomfort. VSS, NSR on tele monitor. Independent OOB. Call austin within reach.
[2023-08-05] MEDS: TOPROL XL 12.5 MG PO (22:09)
--- NOTE | 2023-08-05 22:52 | PTCARENOTE ---
Pt rec'd at beginning of shift ambulating several laps around nursing unit. Sinus on telemetry with ht rates 40-50's. Pt asympt. At HS pt's ht rate 50's ,decreased dose of Metoprolol 12.5 mg given as ordered. Pt aware to sit on side of bed before
getting up to bathroom and to call if she feels dizzy.
call austin within reach
[2023-08-06 04:42] VITALS: BP 121/72
[2023-08-06] MEDS: TYLENOL 650 MG PO (05:04)
--- NOTE | 2023-08-06 05:08 | PTCARENOTE ---
Pt awoken with c/o h/a and neck pain. Pt states she thinks it was the way she slept. medicated with Tylenol. Pt remains sinus viktor on telemetry 40-50, asympt.
[2023-08-06 05:14] LABS: % Eosinophils 1.2 % (0-6); % Immature Granulocytes 0.2 % (0-0.5); % Lymphocytes 52.3 % (20.5-51.1); % Neutrophils 36.3 % (42.2-75.2); Absolute Basophils 0.1 10^3/uL (0-0.2); Absolute Eosinophils 0.1 10^3/uL (0-0.7); Absolute Lymphocytes 2.6 10^3/uL (1.2-3.4); Absolute Monocytes 0.4 10^3/uL (0.1-0.6); Absolute Neutrophils 1.8 10^3/uL (1.4-6.5); Hematocrit 39.7 % (37.0-47.0); Hemoglobin 13.1 g/dL (12.0-16.0); Mean Corpuscular Hgb 29.9 pg (27.0-31.0); Mean Corpuscular Volume 90.6 fL (81.0-99.0); Mean Platelet Volume 10.2 fL (7.4-10.4); Nucleated Red Blood Cells % 0 %; Platelet Count 177 10^3/uL (130-400); Red Blood Cell Count 4.38 10^6/uL (4.20-5.40); White Blood Cell Count 4.9 10^3/uL (4.8-10.8)
[2023-08-06 05:27] LABS: Blood Urea Nitrogen 15 mg/dl (7-17); Calcium 9.1 mg/dl (8.4-10.2); Carbon Dioxide 23 mmol/L (22-30); Chloride 111 mmol/L (98-107); Estimated Creatinine Clearance 59 ml/min; Glucose 90 mg/dl (70-99); Potassium 4.7 mmol/L (3.5-5.1); Sodium 140 mmol/L (135-145); eGFR > 60.00
[2023-08-06] MEDS: NSS IV (06:08)
[2023-08-06 07:04] VITALS: BP 123/82
[2023-08-06] MEDS: ELIQUIS 5 MG PO (08:26)
--- NOTE | 2023-08-06 08:59 | W.PN.CARDCBS ---
Today's Communication / Plan
-
Amiodarone start today
Echo pending
Likely d/c today after echo
Impression / Plan
-
.
PCP: Dr. Hunter
Cardiology: Dr. Goodman
Financial Service Representative: Dr. Oneill
Impression:
Symptomatic, unstable rapid typical atrial flutter
s/p urgent DC cardioversion with 200 J x 1 in the ED
History of PVI and CTI flutter ablation with Dr. Oneill April 03, 2023
Failed flecainide antiarrhythmic therapy which was started July 26, 2023 now discontinued this admission
Chronic anticoagulation for stroke risk reduction.
Dyslipidemia; has declined pharmacologic therapy
Prediabetes
Osteoarthritis left hip arthroplasty for osteoarthritis 02/16/2015.
Left inguinal hernia repair with mesh 01/26/2016.
Bilateral tubal ligation.
Left knee ligament repair.
-Left heart catheterization with Dr. Duenas May 03, 2022: Left dominant nonobstructive coronary artery disease with slow flow concerning for microvascular disease or vasospasm
-2D echocardiogram May 03, 2022: Normal LV size and systolic function with mild concentric left ventricular hypertrophy. EF estimated 60 to 65%. Normal RV size and systolic function. Mild mitral regurgitation. Mild tricuspid regurgitation.
[place] mildly sclerotic aortic valve with mild aortic regurgitation. Estimated pulmonary artery pressures 25 mmHg.
-CT chest preablation March 21, 2023: Conventional pulmonary venous anatomy. Left atrium 3.8 cm. Left atrial appendage free of thrombus. No significant coronary artery calcifications noted. Heart was normal in size. Minimal calcification of
the aortic valve. No significant atherosclerotic disease of the thoracic aorta. Mild fusiform aneurysmal dilatation of the ascending thoracic aorta, 4.2 cm. No pulmonary embolism. Unremarkable thyroid. No significant pleural or pericardial
effusion. No pulmonary nodules or areas of airspace disease.
Plan:
Unstable rapid typical atrial flutter status post urgent ED cardioversion 08/04/2023
-Remains in sinus
-Start Amiodarone 200 mg BID today
-Last Flecainide was August 03 and she only took a few doses.
-Metoprolol reduced for resting bradycardia. She is asymptomatic.
-Cont Eliquis
-Patient has an appointment with Dr. Oneill on August [address] Oneill anticipates repeat ablation possibly August 19.
Markedly abnormal EKG in rapid atrial flutter concerning for ischemia
-Cardiac catheterization April 2022 reviewed with no significant coronary disease but possibility of slow flow in LAD
-initial cardiac troponin undetectable.
would hold off repeating cardiac troponins which may be elevated following cardioversion
Acute renal insufficiency in the setting of hypotension and rapid atrial flutter
-Cr, potassium and magnesium stable.
Elevated proBNP with no clinical symptoms for heart failure
-Chest x-ray is clear and she appears euvolemic
-Will repeat 2D echocardiogram on Sunday.
Prediabetes with hemoglobin A1c 6.1% April 2022
-Repeat hemoglobin A1c is improved, 5.7%
History of dyslipidemia previously has declined lipid-lowering therapy.
-Last profile in April 2022: LDL 114, triglycerides 43, HDL 75.
-Repeat lipid profile this morning: LDL 97, triglycerides 101, HDL 49.
-Continue therapeutic lifestyle changes
Discussed with nursing.
Progress Note - Railroad Car Inspector
Subjective
Date of Service: August 06, 2023
Pt seen and examined. No cp or dyspnea.
Objective
Labs:
08/06/23 04:59
08/06/23 04:59
Labs
Hgb 13.1 g/dL (12.0-16.0) 08/06/23 04:59
Hct 39.7 % (37.0-47.0) 08/06/23 04:59
Plt Count 177 10^3/uL (130-400) 08/06/23 04:59
Sodium 140 mmol/L (135-145) 08/06/23 04:59
Potassium 4.7 mmol/L (3.5-5.1) 08/06/23 04:59
BUN 15 mg/dl (7-17) 08/06/23 04:59
Creatinine 0.8 mg/dL (0.6-1.0) 08/06/23 04:59
Glucose 90 mg/dl (70-99) 08/06/23 04:59
Troponins
08/04/23 08/04/23 08/05/23
19:17 23:23 02:38
Troponin I < 0.012 0.014 0.023 D
08/05/23
05:05
Troponin I 0.019
Vital Signs and I&O:
Vital Signs
Temp Pulse Resp BP Pulse Ox
97.5 F 55 18 123/82 96
08/06/23 06:49 08/06/23 08:00 08/06/23 06:49 08/06/23 07:04 08/06/23 06:49
Vital Signs
Temp Pulse Resp BP Pulse Ox
97.5 F 55 18 123/82 96
08/06/23 06:49 08/06/23 08:00 08/06/23 06:49 08/06/23 07:04 08/06/23 06:49
Intake & Output
08/04/23 08/05/23 08/06/23 08/07/23
06:59 06:59 06:59 06:59
Intake Total 650 / 650 480 / 480
Balance 650 / 650 480 / 480
Physical Exam
Physical Exam
General: No acute distress, AAOX3
Neck: Negative JVD
Heart: Regular, Negative S3 positive S1/S2, Negative S4, No murmur
Lungs: CTA b/l, negative wheezes/rales/rhonchi
Abd: Positive BS, NT/ND, neg rebound/rigidity/guarding
Ext: Negative cyanosis/clubbing/edema
Neuro: nonfocal
[2023-08-06] MEDS: PACERONE 200 MG PO (09:15)
[2023-08-06 09:38] VITALS: BMI 23.6
--- NOTE | 2023-08-06 10:30 | CM ---
Reviewed chart. Met with Mrs. Martinez to review discharge plans. She states prior to admission she resides alone in a two story twin house with three steps to enter. She states she has to go up a full flight of steps to get to bedroom/full
bathroom. She states she has a powder room on the first floor. She states prior to admission she was independent with ambulation and adls. She states she does not have any DME in the home. She states she has a prescription plan and uses [facility]. Medical work-up in progress. The discharge plan is to return home when medically stable.
--- NOTE | 2023-08-06 12:03 | W.PN.HOSP.TC ---
Today's Communication/Plan
-
DC
Assessment / Plan
Assessment / Plan
Unstable rapid atrial flutter
Status post urgent cardioversion on admission, now remains in normal sinus rhythm
History of ablation in March,
Failed flecainide which is now discontinued per cardiology. Now amiodarone initiated after flecainide washout
ECHO today
Currently on metoprolol
Elevated proBNP, no signs of CHF
CXR without pulmonary edema
Echo today
Hold off on diuresis at this time
Prediabetes
Monitor
Acute renal insufficiency secondary to possible hypotension
Improving
Continue to monitor
DVT prophylax
Eliquis
Full Code
DC home after ECHO and ok from cards standpoint
Anticipated Discharge: Today
Subjective/Interval History
-
Date of Service: August 06, 2023
Voices no specific complaints.
Await echocardiogram
Objective Data
-
Labs:
Laboratory Results
08/06/23
04:59
WBC 4.9
Hgb 13.1
Hct 39.7
Plt Count 177
Sodium 140
Potassium 4.7
Chloride 111 H
Carbon Dioxide 23
BUN 15
Creatinine 0.8
Glucose 90
Calcium 9.1
Vital Signs:
Vital Signs
Temp Pulse Resp BP Pulse Ox
97.5 F 55 18 123/82 96
08/06/23 06:49 08/06/23 08:00 08/06/23 06:49 08/06/23 07:04 08/06/23 06:49
I&O
08/05/23 08/06/23 08/07/23
06:59 06:59 06:59
Intake Total 650 / 650 480 / 480
Balance 650 / 650 480 / 480
Review of Systems
-
Respiratory: Denies Trouble Breathing
Cardiac: Denies Chest Pain or Palpitations
Abdomen/GI: Denies Abdominal Pain, Nausea or Vomiting
Neuro: Denies Dizzy
Physical Exam
-
General: No Apparent Distress
HEENT: Moist Mucous Membranes
Respiratory: Clear to Auscultation
Cardiac: Regular Rhythm and S1/S2; Negative Tachycardic
GI: Soft
Neuro: AO x 3
Data Reviewed
-
Labs: Labs Reviewed by me
[2023-08-06 13:21] VITALS: BP 94/70
--- NOTE | 2023-08-06 13:43 | W.DS.TRANS ---
DC Summary - Survey Manager
-
Discharge Instructions:
Sleep Apnea Risk Low
Discharge Diagnosis/Procedures Afib with RVR s/p cardioversion
Diet Regular
Activity As tolerated
Driving Restrictions As prior to admission
Bathing Restrictions None
Instructions:
Stand-Alone Forms:
Changes to Home Medications: Yes
Discharge Medications:
DC Medications w/original date entered in [employer]
apixaban 5 mg tablet (Eliquis) 5 mg PO BID #30 tabs 05/04/22
amiodarone 200 mg tablet (Pacerone) 200 mg PO BID #60 tabs 08/06/23
metoprolol succinate 25 mg tablet,extended release 24 hr 12.5 mg (1/2 x 25 mg) PO HS #30 tabs 08/06/23
Home Medication Changes
New medication-amiodarone
Change in medication metoprolol dose decreased to 12.5 mg from 25.
Discontinue medication-flecainide.
Pending Results: No
--- NOTE | 2023-08-07 17:16 | W.DCSUMMARY ---
Discharge Summary
Discharge Data
Date of Admission: 08/04/23
Date of Discharge: 08/06/23
-
Pending Results: No
Hospital Course
primary diagnosis:
Rapid atrial flutter s/p recent cardioversion
History of atrial flutter s/p ablation
Acute kidney injury
Secondary diagnosis:
History of prediabetes
Hospital course:
patient presented with symptomatic rapid atrial flutter with lightheadedness and hypotension. Underwent urgent cardioversion in the ER.
She has history of atrial flutter status post ablation in March [address] Oneill. She had repeated cardioversions for breakthrough symptomatic aflutter. She was put on flecainide this month with plans for EP to follow for redo ablation.
She remained in sinus rhythm after cardioversion and hemodynamics improved. After flecainide washout she was put on amiodarone. No evidence of heart failure. Echo showed EF of 60%.
Creatinine normalized with improved hemodynamics suspect ALLA was probably hemodynamic related.
When she was stable cardiac [place] she was discharged home.
Consultants on board:
Cardiology-Maricarmen Azevedo
Discharge Plan
-
Patient Disposition: Home (Routine Discharge)
Discharge Diagnosis/Procedures: Afib with RVR s/p cardioversion
Condition: Fair
Diet: Regular
Activity: As tolerated
Driving Restrictions: As prior to admission
Bathing Restrictions: None
Referrals:
Ziggy Oneill MD [Active] - 08/14/23 12:40 pm (You have a follow up visit with Dr. Oneill at the [place] office. Please call with questions. )
Jessica Bertrand PA-C [Family Provider] - in less than 1 week
Prescriptions:
New
amiodarone [Pacerone] 200 mg Tablet
200 mg PO BID Qty: 60 0RF
metoprolol succinate 25 mg Tablet Extended Release 24 Hr
12.5 mg PO HS Qty: 30 0RF
Discontinued
metoprolol succinate 25 mg tablet extended release 24 hr
25 mg PO HS
flecainide 50 mg Tablet
50 mg PO Q12H
No Action
Eliquis 5 mg tablet
5 mg PO BID
Discharge Orders:
Discharge Patient (As Directed); Ordered 08/06/23
Ordered By: Yosvany Phan
Care Plan Goals
Care Plan Goals:
Problem: Readiness for enhanced knowledge related to diagnosis and treatment plan
Goal: Understand your diagnosis and treatment plan needs, including medications if applicable.
Instructions: Know your diagnosis, underlying causes and treatment plan options, including medications if applicable. Consult with your health care team to learn about your diagnosis and treatment plan, including medications if applicable.
Discharge Date and Time
Discharge Date/Time: 08/06/23 14:30
Print Language: THAI
== END 2023-08-06 14:30 | disposition home or self-care (01) | DRG 309 ==
LOC: IVU 21:48
PROVIDERS: Emergency Medicine; Internal Medicine; ADMITTING PHYSICIAN Internal Medicine; ATTENDING PHYSICIAN Internal Medicine; CONSULT PHYSICIAN Internal Medicine Cardiovascular Disease; EMERGENCY PHYSICIAN Emergency Medicine; FAMILY PHYSICIAN Physician Assistant Medical
PROC: 3E0DXRZ Introduction of Antiarrhythmic into Mouth and Pharynx, External Approach (ICD-10-PCS; 2023-08-06)
DX: I48.3 Typical atrial flutter (principal); D68.59 Other primary thrombophilia; N17.9 Acute kidney failure, unspecified; I48.0 Paroxysmal atrial fibrillation; I47.19 Other supraventricular tachycardia; R73.03 Prediabetes; M16.12 Unilateral primary osteoarthritis, left hip; E78.5 Hyperlipidemia, unspecified; E87.5 Hyperkalemia; E78.2 Mixed hyperlipidemia; Z86.010 Personal history of colon polyps; Z88.1 Allergy status to other antibiotic agents; Z79.01 Long term (current) use of anticoagulants
CPT/HCPCS: 71045; 80048; 80053; 80061; 83036; 83735; 83880; 84484; 85025; 85027; 92960; 93005; 93306; 96360; 99152; 99291

== ENCOUNTER → 2023-08-15 10:56 | Outpatient (REF) | payer MEDICARE, OTHER, SELFPAY ==
[2023-08-15 11:46] LABS: % Basophils 0.7 % (0-2); % Eosinophils 0.4 % (0-6); % Immature Granulocytes 0.2 % (0-0.5); % Monocytes 8.8 % (1.7-9.3); % Neutrophils 55.9 % (42.2-75.2); Absolute Lymphocytes 1.9 10^3/uL (1.2-3.4); Absolute Monocytes 0.5 10^3/uL (0.1-0.6); Absolute Neutrophils 3.1 10^3/uL (1.4-6.5); Hematocrit 45.1 % (37.0-47.0); Hemoglobin 14.9 g/dL (12.0-16.0); Mean Corpuscular Hgb 29.6 pg (27.0-31.0); Mean Corpuscular Volume 89.5 fL (81.0-99.0); Nucleated Red Blood Cells % 0 %; Platelet Count 214 10^3/uL (130-400); Red Blood Cell Count 5.04 10^6/uL (4.20-5.40); Red Cell Dist. Width 12.9 % (11.5-14.5); White Blood Cell Count 5.6 10^3/uL (4.8-10.8)
[2023-08-15 11:52] LABS: INR 1.15; PT 14.7 Sec (11.4-14.6)
[2023-08-15 11:57] LABS: ALT (SGPT) 15 U/L (0-35); AST (SGOT) 20 U/L (14-36); Albumin 4.6 g/dl (3.5-5.0); Alkaline Phosphatase 106 U/L (38-126); Blood Urea Nitrogen 24 mg/dl (7-17); Calcium 9.8 mg/dl (8.4-10.2); Carbon Dioxide 22 mmol/L (22-30); Chloride 106 mmol/L (98-107); Glucose 104 mg/dl (70-99); Magnesium 2.1 mg/dl (1.6-2.3); Potassium 4.8 mmol/L (3.5-5.1); Sodium 137 mmol/L (135-145); Total Bilirubin 0.7 mg/dl (0.2-1.3); Total Protein 7.4 g/dl (6.3-8.2); eGFR 59.49
== END ==
LOC: SDSPAT 10:56
PROVIDERS: ATTENDING PHYSICIAN Internal Medicine Cardiovascular Disease; FAMILY PHYSICIAN Physician Assistant Medical; OTHER PHYSICIAN Nuclear Medicine Nuclear Cardiology
DX: Z01.818 Encounter for other preprocedural examination (principal); I48.92 Unspecified atrial flutter
CPT/HCPCS: 36415; 80053; 83735; 85025; 85610; 86850; 86900; 86901

== ENCOUNTER 2023-08-20 06:03 | Day surgery (SDC) | payer MEDICARE, OTHER, SELFPAY ==
[2023-08-15 11:09] VITALS: BMI 24.0
[2023-08-20] VITALS (10 sets, daily range): BP systolic 96–145; BP diastolic 70–90; BMI 24.0
[2023-08-20 09:04] LABS: ACT-LR - POC 219 Seconds (116-155)
[2023-08-20 10:05] LABS: ACT-LR - POC 289 Seconds (116-155)
[2023-08-20 10:25] LABS: ACT-LR - POC 297 Seconds (116-155)
--- NOTE | 2023-08-20 10:46 | ITS.CL.ABL ---
Water Hydrant Installer - Ablation
Ablation
Procedure Report:
ELECTROPHYSIOLOGY ABLATION STUDY
DATE:: August 20, 2023 REFERRING: Dr. Ulises Goodman
INDICATION: Paroxysmal supraventricular tachycardia in the form of atrial fibrillation. Recurrent atrial flutter likely from the CTI with one-to-one conduction and hypotension. Prior CTI ablation and PVI ablation in March 2023 with a 28 mm
cryoballoon.
HISTORY: See H and P. As above
ANTIARRHYTHMIC DRUG: Amiodarone
PRE-PROCEDURE LYNNETTE: No atrial thrombus
PRESENTING RHYTHM: Sinus bradycardia with intermittent junctional rhythm
'TIME-OUT': called and confirmed.
SEDATION/ANESTHESIA: provided via the anesthesia department using general anesthesia (LMA).
INTRAVENOUS/ARTERIAL ACCESS:
Right femoral venous - 8Fr
Left femoral venous - 8 Fr, 6 Fr
[id number] suture to bilateral femoral access sites
Ultrasound guidance for bilateral femoral vein access was utilized by me to obtain access with demonstration of normal anatomy
CHADS-VASC Score:
HAS-Bled Score
PROCEDURE:
1. A decapolar CS catheter was placed within the CS for mapping and pacing. This was also used as the reference catheter for the 3-D map. With coronary sinus pacing we mapped the prior CTI ablation with multipolar catheter demonstrating area of
reconnection at the IVC along the septal aspect. Interest was conduction time of 110 ms was seen at the beginning of procedure. There also fractionated potentials along the septal aspect at the tricuspid annulus. With ablation from the mid CTI
back towards the IVC this area of reconnection was blocked bidirectionally but interestingly a connection still existed from the septal aspect of the CTI at the tricuspid valve with an epicardial connection exiting endocardially approximately 1.5 cm
laterally at the mid isthmus. We could bring about CTI block transiently at the lateral position but continued reconnection. We then directed our attention to this septal region at the tricuspid annulus with great care monitoring AV conduction and
dense ablation performed in this region brought about persistent bidirectional block with interest was conduction time of 170 ms. Initial 10-minute waiting period demonstrated ongoing bidirectional block and we proceeded to the left atrium to
reassess PV reconnection and ablate with PFA as below. At the end of the procedure we reinterrogated the CTI with coronary sinus pacing with ongoing bidirectional block with interest was conduction time of 170 ms over a 60-minute waiting period.
Burst pacing and extrastimuli did not induce any other tachyarrhythmia.
2. The intracardiac ultrasound catheter was positioned in the RA to identify the FO for targeting of transseptal puncture, assist in identification of the pulmonary vein ostia, monitoring pre and post ablation pulmonary vein flow velocities,
monitoring for 'bubble' formation during RF application as a sign of thermal injury, and to monitor for pericardial effusion during mapping and ablation procedure. Left atrial size, LV ejection fraction, and pulmonary vein flows were monitored
pre and post ablation procedure. The other valves were inspected and found to be free of significant regurgitation or stenosis.
3. Half of the calculated heparin bolus was administered prior to the first transeptal puncture. Transseptal puncture was performed to diagnose RA and LA pressure so that safety of LA mapping and ablation could be further assessed, and to access
the left atrium and pulmonary veins for mapping and ablation. This entailed advancing an 10 [place] steerable sheath with dilator into the superior vena cava and withdrawing both (monitoring intracardiac ultrasound, fluoroscopy and tip pressure)
with the tip oriented toward the atrial septum. The fossa ovalis was engaged (indicated by sudden displacement of the sheath tip as well as tenting of the fossa seen on intracardiac ultrasound). Left atrial access required a pass with the
[place] needle extended. Left atrial catheter position was confirmed by pressure monitoring (RA mean pressure 8 mm Hg and LA mean presure 12 mm Hg), LA saturation (99%), as well as fluoroscopy. The sheath was advanced over the dilator and
positioned in the left atrium. This procedure was repeated for the Agilis sheath. The remainder of the calculated heparin bolus was administered and heparin was
infused to maintain ACT at 300 -350 seconds throughout the case.
4. RA pacing was performed via the proximal decapolar poles and LA pacing was performed via the distal decapolr poles.
5. A quadrapolar catheter was first positioned at the His position for His Bundle recording which was tagged via the 3-D Navex sytem, and then passed to the RVA for RV pacing and recording.
6. The multipolar catheter interrogated each of the pulmonary veins and was placed in each of the LIPV, LSPV, RSPV and the RIPV. There was connection along the lius enrique of the left superior pulmonary vein and the inferior and posterior region of the
right inferior pulmonary vein.
7. Next, a 3-D map was created using Navex. A 3-D reconstructed CT image was compared to the 3-D Navex map to assist in anatomic interpretation, mapping and ablation. The CT image and the NavX image were fused.
8. 88 lesions were given to the pulmonary veins and the posterior wall of the left atrium demonstrating entrance and exit block in all 4 pulmonary veins as well as entrance and exit block in the left atrial posterior wall. The patient was
noninducible for any other tachyarrhythmia. We then reinterrogated the prior CTI flutter line at the end of procedure with bidirectional block at 170 ms bidirectionally.
9. See the prior reconnection as above.
TOTAL FLOURO TIME: 23.7 minutes
TOTAL RF DURATION: 14 minutes
REVERSAL OF HEPARIN: 40 mg of protamine, slow IV administration
COMPLICATIONS:
None
Intracardiac US shows no pericardial effusion post ablation.
SUMMARY:
Complex left atrial mapping and ablation.
Endocardial reconnection at the IVC plus an epicardial reconnection from the septal tricuspid annulus to the mid lateral CTI diagnosed at the beginning of procedure. Dense RF ablation from the tricuspid annulus back towards the IVC brought about
bidirectional block with 170 ms bidirectionally. Reisolation of the left superior pulmonary vein and right inferior pulm veins as well as left atrial posterior wall with PFA.
RECOMMENDATIONS:
1. Admit to monitored bed.
2. Resume anticoagulation
3. Out of bed 4 hours
4. Lower amiodarone to 200 mg daily and consider same-day discharge
Copy to: Dr. Ulises Goodman
--- NOTE | 2023-08-20 11:28 | PTCARENOTE ---
Dr Brian lang texted concerning pt's 08/21 left upper back pain
--- NOTE | 2023-08-20 11:42 | PTCARENOTE ---
Dr Torres responded, he will place orders for pain med
[2023-08-20] MEDS: DILAUDID 0.25 MG IV (11:57)
--- NOTE | 2023-08-20 12:05 | PTCARENOTE ---
Dr Brian lang texted concerning pt's 08/21 left upper back pain
--- NOTE | 2023-08-20 12:10 | PTCARENOTE ---
Pt rates left upper back pain at 3/10 now, denies need for more pain med, states 'It won't go completely away until I am able to bend over and stretch it out.'
--- NOTE | 2023-08-20 16:04 | W.PN.UPDATE ---
Update Note
Progress Note Update
Pt seen post PVI. Bilat groin sites without ht/bleeding, non tender. OOB ambulating, urinating without difficulty. Post EKG SB 50s, no acute changes. Resume eliquis today. Will decrease amiodarone to 200mg/daily. Followup with Dr. Goodman arranged.
Home today if groin sites/tele remain stable.
== END 2023-08-20 15:35 | disposition home or self-care (01) ==
LOC: CATH 06:03
PROVIDERS: ATTENDING PHYSICIAN Internal Medicine Cardiovascular Disease; FAMILY PHYSICIAN Physician Assistant Medical; OTHER PHYSICIAN Nuclear Medicine Nuclear Cardiology
DX: I48.92 Unspecified atrial flutter (principal); I48.0 Paroxysmal atrial fibrillation; I25.10 Atherosclerotic heart disease of native coronary artery without angina pectoris; I08.3 Combined rheumatic disorders of mitral, aortic and tricuspid valves; I45.10 Unspecified right bundle-branch block; I47.10 Supraventricular tachycardia, unspecified; E78.5 Hyperlipidemia, unspecified; Z79.01 Long term (current) use of anticoagulants
CPT/HCPCS: C1732; C1894; C1730; C1733; C1769; C1766 ×2; C2630; C1892; C1759; 76937; 85347; 93005; 93655; 93656

== ENCOUNTER 2024-03-06 14:38 | Emergency (ER) | payer MEDICARE, OTHER, SELFPAY ==
[2024-03-06] VITALS (8 sets, daily range): BP systolic 124–148; BP diastolic 72–104; PULSE 61–65
[2024-03-06 15:11] LABS: % Basophils 0.8 % (0-2); % Eosinophils 0.4 % (0-6); % Immature Granulocytes 0.2 % (0-0.5); % Lymphocytes 33.7 % (20.5-51.1); % Monocytes 7.9 % (1.7-9.3); Absolute Lymphocytes 1.7 10^3/uL (1.2-3.4); Absolute Monocytes 0.4 10^3/uL (0.1-0.6); Absolute Neutrophils 2.9 10^3/uL (1.4-6.5); Hematocrit 42.4 % (37.0-47.0); Hemoglobin 14.2 g/dL (12.0-16.0); Mean Corp Hgb Conc. 33.5 g/dL (33.0-37.0); Mean Corpuscular Volume 89.5 fL (81.0-99.0); Mean Platelet Volume 9.5 fL (7.4-10.4); Nucleated Red Blood Cells % 0 %; Platelet Count 219 10^3/uL (130-400); Red Blood Cell Count 4.74 10^6/uL (4.20-5.40); Red Cell Dist. Width 12.7 % (11.5-14.5); White Blood Cell Count 5.1 10^3/uL (4.8-10.8)
[2024-03-06 15:27] LABS: ALT (SGPT) 17 U/L (0-35); AST (SGOT) 26 U/L (14-36); Albumin 4.4 g/dl (3.5-5.0); Alkaline Phosphatase 83 U/L (38-126); Blood Urea Nitrogen 19 mg/dl (7-17); Calcium 9.6 mg/dl (8.4-10.2); Carbon Dioxide 25 mmol/L (22-30); Chloride 103 mmol/L (98-107); Glucose 119 mg/dl (70-99); Potassium 4.3 mmol/L (3.5-5.1); Sodium 138 mmol/L (135-145); Total Bilirubin 0.6 mg/dl (0.2-1.3); Total Protein 7.1 g/dl (6.3-8.2); eGFR > 60.00
[2024-03-06 15:36] LABS: Troponin I < 0.012 ng/ml
[2024-03-06] MEDS: NSS 1000 IV (18:58)
[2024-03-06] MEDS: ANTIVERT 25 MG PO ×2 (18:58→22:04)
--- NOTE | 2024-03-06 19:05 | ED.GENMED ---
History of Present Illness
General
Chief Complaint: Blood Pressure Problem
Time Seen by Provider: 03/06/24 18:12
History of Present Illness
History of Present Illness:
74-year-old female with history of A-fib on Eliquis presenting to the emergency department for dizziness. Patient reports symptoms started this afternoon. She reports she was sitting at her table talking to her sister on the phone. When she stood
up she felt dizzy. She thought it was secondary to not eating lunch. However after she ate notes that she was still having the symptoms upon standing. She describes the dizziness as room spinning, worse with certain movements. Denies ever having
the symptoms in the past. Denies any fall or trauma. She reports history of A-fib, checked her heart rate, reports that it was normal. She did check her blood pressure and notes that it was more elevated than typical for her. Does report that
she had been on metoprolol for her A-fib, however recently discontinued because her blood pressure had been on the lower side. Denies chest pain or difficulty breathing. Denies visual changes. Denies weakness or numbness to her extremities.
Denies fever or recent illness. Denies additional acute medical complaints.
Past History
Past History
ED Past Medical History: Arrthythmia (Atrial fibrillation, anticoagulated) and Other (colon polyps)
ED Past Surgical History: Cardiac (pvi), Orthopedic and Other (A ligament repair of the left knee, wisdom teeth extraction, tubes tied, colonoscopy with polypectomy)
Social History
Tobacco: Non-smoker
Alcohol: None
Drug: None
Personal:
Living: alone
Employment: Retired
Phy Exam
Physical Exam
Physical Exam:
General: Well-appearing, no clinical signs of dehydration, nontoxic and in no acute distress
HEENT: protecting airway, pupils equal and reactive, extraocular movements intact. Symptoms made worse with lateral eye movements. No significant nystagmus.
Neck: appears supple
CV: Normal heart rate, regular rhythm
Resp: No accessory muscle use, no increased work of breathing, lungs clear to auscultation bilaterally
Abd: no distension
Extremities: No deformities, no swelling, no erythema
Neuro: alert, no focal neurologic deficit
: deferred
Rectal: deferred
Psych: Normal affect
Skin: Intact
Course
Orders/Labs/Results
Orders:
Orders
03/06/24 14:46
Electrocardiogram (*1) Urgent
Reason for Study: Vertigo / Dizzy
03/06/24 14:47
EKG- Treatment ONCE
03/06/24 14:58
Complete Blood Count/With Diff Urgent
Comprehensive Metabolic Panel Urgent
Troponin I Urgent
03/06/24 18:43
CT Head W/o Iv Contrast Urgent
Comment:
Reason For Exam: dizziness
Orthostatic VS- Treatment ONCE
0.9% Sodium Chloride 1000 ml [Nss] 1,000 ml IV BOLUS
Meclizine [Antivert] 25 mg PO NOW STA
Abnormal Lab Results
03/06/24
14:58
BUN 19 H mg/dl
(7-17)
Glucose 119 H mg/dl
(70-99)
03/06/24 14:58
03/06/24 14:58
Vital Signs
Initial and Last Documented VS:
Initial Vital Signs
Temp Pulse Resp BP Pulse Ox
98.4 F 60 18 148/104 98
03/06/24 14:43 03/06/24 14:43 03/06/24 14:43 03/06/24 14:43 03/06/24 14:43
Last Documented Vital Signs
Temp Pulse Resp BP Pulse Ox
98.4 F 66 15 136/78 98
03/06/24 14:43 03/06/24 21:15 03/06/24 21:15 03/06/24 21:00 03/06/24 21:15
MDM/Problems Addressed
MDM/Problems Addressed:
74-year-old female with history of A-fib on Eliquis presenting for dizziness upon standing and elevated blood pressure. Vital signs on arrival significant for mild hypertension.
On exam patient is resting comfortably, no acute distress or discomfort. Symptoms appear most consistent with BPPV. Notes positional dizziness, described as room spinning. Patient also notes that symptoms are worse from sitting to standing,
possible orthostatic component. Will obtain orthostatic vital signs. EKG obtained on arrival, sinus rhythm, no evidence of fibrillation or ischemia. Blood pressure is slightly elevated, however patient notes that last week she was taken off of
metoprolol, which could be contributing to fluctuations in blood pressure. Given patient's age, dizziness, elevated blood pressure, will obtain CT brain imaging, however no present focal neurologic deficits on exam. Will treat with meclizine and
IVF and reassess for improvement.
21:45 -orthostatics negative CT brain negative. On reassessment after meclizine, patient notes that she is feeling a lot better. At this time continue to suspect BPPV. Feel stable for discharge with outpatient follow-up and supportive therapy.
Return precautions discussed and patient verbalized understanding
*EKG
Interpreted by ED Provider?: Yes
EKG Intrepretation Date: 03/06/24
EKG Intrepretation Time: 19:43
Interpretation: normal
Comparison EKG: no changes (08/20/23)
Heart Rate: 71
Rate: normal
Rhythm: PAC's
[place]: normal axis
Interval: normal interval
QRS Pattern: other (incomplete RBBB)
Ischemia: no ischemia
*Critical Care Note
Total Time (30-74mins, 75-104mins- exclusive of procedures): Not Applicable
ED Attending Note
-
Portions of this chart may have been created with voice recognition software.� Occasional wrong word or��sound alike� substitutions may have occurred due to the inherent limitations of voice recognition software.
Discharge Plan
Departure
Prescriptions:
No Action
metoprolol succinate 25 mg Tablet Extended Release 24 Hr
12.5 mg PO HS Qty: 30 0RF
Eliquis 5 mg tablet
5 mg PO BID
amiodarone [Pacerone] 200 mg Tablet
200 mg PO DAILY Qty: 60 0RF
Interventions
Interventions:
*Risk Screen - Suicide Last Done: 03/06/24 14:43
*General Assessment Last Done: 03/06/24 14:43
*Neglect/Abuse Screening Last Done: 03/06/24 14:43
ED- Fall Risk Assessment Last Done: 03/06/24 19:29
ED- Cardiac Assessment Last Done: 03/06/24 19:29
ED- Neurological Assessment Last Done: 03/06/24 19:29
ED- Pulmonary Assessment Last Done: 03/06/24 19:29
Discharge Date and Time
Print Language: HUNGARIAN
== END 2024-03-06 22:08 | disposition home or self-care (01) ==
LOC: EMR 14:38
PROVIDERS: Emergency Medicine; EMERGENCY PHYSICIAN Student in an Organized Health Care Education/Training Program; FAMILY PHYSICIAN Physician Assistant Medical
DX: H81.10 Benign paroxysmal vertigo, unspecified ear (principal); I48.91 Unspecified atrial fibrillation; Z79.01 Long term (current) use of anticoagulants; Z86.0100 Personal history of colon polyps, unspecified
CPT/HCPCS: 99284; 96360; 96361; 70450; 80053; 84484; 85025; 93005

== ENCOUNTER → 2024-05-05 08:12 | Outpatient (REF) | payer MEDICARE, OTHER, SELFPAY | LOC: PAVMRI 08:12 | PROVIDERS: ATTENDING PHYSICIAN Otolaryngology; FAMILY PHYSICIAN Physician Assistant Medical | DX: H90.A21 Sensorineural hearing loss, unilateral, right ear, with restricted hearing on the contralateral side (principal); R42 Dizziness and giddiness | CPT/HCPCS: 70553; A9575 ==

== ENCOUNTER → 2024-09-10 13:54 | Outpatient (REF) | payer MEDICARE, OTHER, SELFPAY | LOC: HWRCS 13:54 | PROVIDERS: ATTENDING PHYSICIAN Nuclear Medicine Nuclear Cardiology; FAMILY PHYSICIAN Physician Assistant Medical | DX: I48.92 Unspecified atrial flutter (principal); I48.0 Paroxysmal atrial fibrillation | CPT/HCPCS: 93306 ==

== ENCOUNTER → 2025-01-02 15:32 | Outpatient (REF) | payer MEDICARE, OTHER, SELFPAY | LOC: WDC 15:32 | PROVIDERS: ATTENDING PHYSICIAN Physician Assistant Medical | DX: Z12.31 Encounter for screening mammogram for malignant neoplasm of breast (principal) | CPT/HCPCS: 77063; 77067 ==